=== PATIENT | female | born 1955 | race Caucasian/White ===

== ENCOUNTER 2016-09-11 16:02 | Emergency (ER) | payer OTHER ==
[2016-09-11 17:18] VITALS: BP 123/56
--- NOTE | 2016-09-11 18:25 | UC ---
Respiratory Complaint HPI - History of Current Complaint Chief Complaint: UCRespiratory Stated Complaint: SINUS CONGESTION Time Seen by Provider: 09/11/16 18:14 Hx Obtained From: Patient Onset/Duration: Gradual Onset - pt has had URI for 2 weeks. over past 2-3 days puja has developed worsening sinus pain, pressure and today she has started to have thick yellow nasal drainage Severity Initially: Mild Severity Currently: Moderate Aggravating Factors: Nothing - bending over Alleviating Factors: Nothing - is already taking trini D Associated Signs And Symptoms: Positive: Fever, URI, Nasal Congestion, Sinus Discomfort - Allergies/Home Medications Allergies/Adverse Reactions: Allergies Allergy/AdvReac Type Severity Reaction Status Date / Time No Known Allergies Allergy Verified 10/11/12 09:24 PMH/Surg Hx/FS Hx/Imm Hx Previously Healthy: Yes Endocrine History Of: Denies: Diabetes, Thyroid Disease Cardiovascular History Of: Denies: Cardiac Disorders, Hypertension Respiratory History Of: Denies: COPD, Asthma GI/ History Of: Denies: Ulcer Cancer History Of: Reports: Breast Cancer - Surgical History Surgical History: Yes Surgery Procedure, Year, and Place: lumpectomy left breast 2007. sinus surgery 1989. tubal ligation - Family History Known Family History: Positive: None - Social History Occupation: Unemployed Lives: With Family Alcohol Use: Daily Substance Use Type: None Smoking Status (MU): Never Smoked Tobacco Review of Systems Constitutional: Fever, Fatigue Skin: Negative Eyes: Negative ENT: Nasal Discharge, Other - facial pressure and pain Respiratory: Negative Cardiovascular: Negative Genitourinary: Negative Neurological: Negative Psychological: Negative All Other Systems Reviewed And Are Negative: Yes Physical Exam Triage Information Reviewed: Yes Appearance: Well-Appearing, No Pain Distress, Well-Nourished Vital Signs: Initial Vital Signs Temp 99.4 F 09/11/16 17:15 Pulse 75 09/11/16 17:15 Resp 18 09/11/16 17:15 BP 123/56 09/11/16 17:15 Pulse Ox 100 09/11/16 17:15 Vital Signs Reviewed: Yes Eyes: Positive: Conjunctiva Clear ENT: Positive: Nasal congestion, Other: - OP: injected and irritated with clear PND Neck exam: Normal Neck: Positive: No Lymphadenopathy Respiratory Exam: Normal Respiratory: Positive: Lungs clear Cardiovascular Exam: Normal Cardiovascular: Positive: RRR Neurological Exam: Normal Psychological Exam: Normal Skin Exam: Normal UC Diagnostic Evaluation - Laboratory O2 Sat by Pulse Oximetry: 100 Respiratory Course/Dx - Differential Dx/Diagnosis Differential Diagnosis/HQI/PQRI: Sinusitis, Other - URI allergies Provider Diagnoses: sinusitis Discharge - Discharge Plan Condition: Stable Disposition: HOME Patient Education Materials: Sinusitis (ED) Referrals: Brandon Bailey MD [Primary Care Provider] - 3 Days (if no better) Additional Instructions: drink plenty of fluids use antibiotic as directed Tylenol or ibuprofen over the counter as directed for pain and fever
[2016-09-11] MEDS ORDERED: Amoxicillin/Clavulanate TAB* 875 MG PO ONE (18:27)
== END 2016-09-11 18:35 | disposition home or self-care (01) ==
LOC: UCEAST 16:02
DX: J32.9 Chronic sinusitis, unspecified (principal)
CPT/HCPCS: 99212; A9270-GY; G0463

== ENCOUNTER 2018-12-05 06:28 | Inpatient (IN) | payer BC ==
--- NOTE | 2018-11-28 10:39 | HP ---
HISTORY AND PHYSICAL: DATE OF SURGERY: 12/05/18. DATE OF OFFICE VISIT: 11/27/18 SURGEON: Pura Valderrama MD* (dictated by RENEE Hayes). PROCEDURE: Right total hip arthroplasty. CHIEF COMPLAINT: Right hip pain. HISTORY OF PRESENT ILLNESS: Ms. Walls is a 63-year-old female with complaints of right hip pain. She has failed conservative treatment and elected to proceed with a right total hip arthroplasty. PAST MEDICAL HISTORY: Osteoporosis and history of breast cancer. PAST SURGICAL HISTORY: Lumpectomy, sinus polyp removal, laparoscopy, and tubal ligation. CURRENT MEDICATIONS: 1. Montelukast sodium 10 mg q.h.s. 2. Azelastine nasal spray. 3. Fluticasone nasal spray. 4. Fosamax 70 mg a week. 5. Mucinex as needed. 6. Julianna as needed. 7. MiraLAX daily. 8. Melatonin. 9. Caltrate Women's One-A-Day. 10. Advil. ALLERGIES: No known drug allergies. FAMILY HISTORY: Coronary artery disease, diabetes, cancer, and stroke. SOCIAL HISTORY: She is a 63-year-old female. She lives with her . She does not smoke or use drugs. She uses occasional alcohol. REVIEW OF SYSTEMS: A complete 14-point review of systems was reviewed with the patient, was all negative and noncontributory. She denies a history of DVT, PE , hepatitis C, HIV, or anesthesia problems. PHYSICAL EXAMINATION GENERAL: She is a well-developed, well-nourished, in no acute distress. VITAL SIGNS: She stands 5 feet 8 inches tall, weighs 160 pounds, blood pressure is 110/55, heart rate 64. HEENT: Normocephalic, atraumatic. NECK: Supple. No palpable lymph nodes. PULMONARY: Lungs are clear to auscultation bilaterally. CARDIO: Regular rate and rhythm. Strong S1, S2. ABDOMEN: Soft, nontender, nondistended. NEUROLOGIC: She is alert and oriented x3. MUSCULOSKELETAL: Right lower extremity, the skin is intact. There are no open wounds or abrasions. She has 80 degrees of hip flexion, 0 degrees of internal rotation, 20 degrees of external rotation, and she lacks 10 degrees from neutral. Flexion and external rotation reproduce her groin pain. She has a 2+ dorsalis pedis pulse, intact sensation. Her lower extremity muscle group strengths are intact at 5/5. ASSESSMENT AND PLAN: Ms. Walls is an 63-year-old female with end-stage osteoarthritis of the right hip. She has failed conservative treatment and elected to proceed with a right total hip arthroplasty. The surgery is scheduled for 12/05/[address] Valderrama has discussed the risks and benefits of the surgery at today's visit and all of her questions were answered. She will follow up with Dr. Valderrama 2 weeks after the surgery. RENEE HAYES [id number]/[facility] #: [id number] MTDNacho
[~2018-12-05 06:28] MED LIST: Buffered Lidocaine 1% SYRIN* 1 ML/SYRINGE INTRADERM ONE; Famotidine IV* 10 MG/ML 2 ML (20 mg) IV ONE; Gabapentin CAP(*) 300 MG PO ONE; Lactated Ringers 1000 ML Bag* 1,000 ML IV SCH; Tranexamic Acid 1,000 MG in NS 0.9% 50 ML* (outpatient use) IV SCH
[2018-12-05] MEDS ORDERED: Gabapentin CAP(*) 300 MG ONE (06:57)
[2018-12-05] MEDS ORDERED: ceFAZolin 2 GM PREMIX in ORs 2 GM/50 ML BAG IVPB ONE (06:57)
[2018-12-05] MEDS ORDERED: Famotidine IV* 10 MG/ML 2 ML (20 mg) ONE (06:58)
[2018-12-05] MEDS ORDERED: ROPIVACAINE 5 MG/ML 30 ML BTL (0.5%) ONE (06:59)
--- OUTSIDE RECORDS SUMMARY | 2018-12-05 07:03 | XMS REPORT | Continuity of Care Document ---
:1955 External Reference #:[id number] Author Name Esme Eaton Care Team Providers Name Role Phone Brandon Bailey MD Primary Care Physician Unavailable Payers Date Identification Numbers Payment Provider Subscriber Policy Number: [id number] [employer] Josephine Walls PayID: [id number] [address] [address] [place] [address] Advance Directives Description No Information Available Problems Active Problems Provider Date Localized, primary osteoarthritis of the pelvic Pura Valderrama M.D. Onset: 07/2018 region and thigh Family History Date Family Member(s) Observation Comments General Diabetes General Heart Disease General Hypertension General Stroke General Cancer General Rheumatoid Arthritis General dystonia Social History Type Date Description Comments Sex Unknown Lives With Spouse Occupation Retired ETOH Use Currently consumes alcohol Tobacco Use Start: Unknown End: Patient is a former quit in 1984 Unknown smoker Smoking Status Reviewed: 11/27/18 Patient is a former quit in 1984 smoker Exercise Type/Frequency Exercises regularly Allergies, Adverse Reactions, Alerts Description No Known Drug Allergies Medications Active Medications SIG Qnty Indications Ordering Provider Date Montelukast Sodium Take 1 Tablet By Unknown 10mg Mouth AT Bedtime Tablets Azelastine HCL (Nasal) Whittaker 1 Whittaker Unknown Into Each Nostril 0.1% Solution In The Morning And AT Night, May Use AT The Same Time as Fluticasone. (Wait 10 Minutes In Between) Fluticasone Propionate Whittaker 2 Sprays Unknown Into Each Nostril 50mcg/Act Suspension One Time Daily Fosamax 1 tab by mouth Unknown 70mg Tablets every week. take in in the morning with 6-8 oz of water and remain upright for 30 minutes Mucinex Allergy as needed Unknown Julianna Allergy as needed Unknown Miralax Unknown Melatonin ER Unknown Caltrate 600 Unknown One Daily For Women Unknown Advil Unknown Immunizations Description No Information Available Vital Signs Date Vital Result Comment 11/27/2018 8:31am Height 68 inches 5'8" Weight 106.00 lb Heart Rate 64 /min BP Systolic 110 mmHg BP Diastolic 55 mmHg Body Temperature 96.5 F BMI (Body Mass Index) 16.1 kg/m2 10/16/2018 9:34am Height 68 inches 5'8" Weight 106.00 lb Heart Rate 60 /min BP Systolic 114 mmHg BP Diastolic 68 mmHg Body Temperature 97.7 F Pain Level 7 BMI (Body Mass Index) 16.1 kg/m2 Results Description No Information Available Procedures Description No Information Available Encounters Type Date Location Provider Dx Diagnosis Office Visit 10/16/2018 Orthopedic Pura Valderrama M25.551 [facility]11 Unilateral primary osteoarthritis, right hip Plan of Treatment Future Appointment(s):12/18/2018 9:00 am - Pura Valderrama M.D. at [facility]12/05/2018 11:30 am - Mehul Damon PA-C at [facility]12/05/2018 11:30 am [facility] 11:30 am - Pura Valderrama M.D. at [facility]11/27/2018 - Pura Valderrama M.D.M25.551 Pain in right hipFollow up:Follow up: 2 weeks after [id number] Unilateral primary osteoarthritis, right hip
[2018-12-05 07:42] LABS: ALT 160 U/L (7-52); Albumin 4.4 g/dL (3.2-5.2); Albumin/Globulin Ratio 1.5 (1-3); Alkaline Phosphatase 50 U/L (34-104); Globulin 2.9 g/dL (2-4); Total Protein 7.3 g/dL (6.4-8.9)
[2018-12-05] MEDS ORDERED: Midazolam* 1 MG/ML 5 ML VIAL (5 MG) ONE (08:48)
[2018-12-05] MEDS ORDERED: fentaNYL* 50 MCG/ML 2 ML VIAL (100 MCG VIAL) ONE (08:48)
[2018-12-05] MEDS ORDERED: KETAMINE HCL* 50 MG/ML 10 ML VIAL ONE (08:49)
[2018-12-05 09:23] LABS: Magnesium 1.9 mg/dL (1.9-2.7)
[2018-12-05] MEDS ORDERED: Ketorolac INJ* 30 MG/ML 1 ML VIAL ONE (09:46)
[2018-12-05] MEDS ORDERED: Propofol* 10 MG/ML 20 ML BTL ONE (09:46)
[2018-12-05] MEDS ORDERED: EPHEDrine (Pressors)* 50 MG/ML VIAL ONE (09:46)
[2018-12-05] MEDS ORDERED: Ondansetron INJ* 2 MG/ML VIAL ONE (09:46)
[2018-12-05] MEDS ORDERED: Dexamethasone IV* 4 MG/ML 1 ML (4 MG) ONE (09:46)
[2018-12-05] MEDS ORDERED: Lidocaine 2% PF * 5 ML VIAL ONE (09:47)
[2018-12-05] MEDS ORDERED: Phenylephrine 10 MG/ML VIAL* 1 ML VIAL ONE (09:47)
[2018-12-05] MEDS ORDERED: Naloxone* 0.4 MG/ML 1 ML VIAL IV PRN (10:34)
[2018-12-05] MEDS ORDERED: HYDROmorphone INJ1* 1 MG/ML SYRINGE IV PRN (10:34)
[2018-12-05] MEDS ORDERED: DiMENhydriNATE IV* 50 MG/ML VIAL IV PUSH PRN (10:34)
[2018-12-05] MEDS ORDERED: oxyCODONE TAB* 5 MG TAB PO PRN (10:34)
[2018-12-05] MEDS ORDERED: Gabapentin CAP(*) 100 MG PO ONE (10:40)
[2018-12-05] MEDS ORDERED: Cyclobenzaprine TAB* 10 MG PO PRN (11:56)
[2018-12-05] MEDS ORDERED: diPHENhydraMINE IV* 50 MG/ML 1 ml VIAL (BENADRYL) IV PRN (11:56)
[2018-12-05] MEDS ORDERED: Ondansetron INJ* 2 MG/ML VIAL IV PRN (11:56)
[2018-12-05] MEDS ORDERED: Morphine INJ* 2 MG/ML 1 ML SYRINGE (TWO MG - NEW SYRINGE VERSION) IV PRN (11:56)
[2018-12-05] MEDS ORDERED: Magnesium Hydroxide LIQ* 30 ML UDC PO PRN (11:56)
[2018-12-05] MEDS ORDERED: Bisacodyl SUPP* 10 MG SUPP PR PRN (11:56)
[2018-12-05] MEDS ORDERED: Gabapentin CAP(*) 100 MG ONE (12:31)
[2018-12-05] MEDS: oxyCODONE TAB* 5 MG TAB PO PRN ×2 (13:57→17:36)
[2018-12-05] MEDS: Lactated Ringers 1000 ML Bag* 1,000 ML IV SCH (13:59)
--- NOTE | 2018-12-05 14:34 | PN ---
Progress Note - Progress Note Date of Service: 12/05/18 Note: Pt seen at bedside. She feels well, she is eating and drinking. Pain is well controlled. Denies CP, SOB, dizziness, nausea. Operative extremity + df/pf, sensation is intact to light touch distally. Dressing CDI
[2018-12-05] MEDS ORDERED: NS 0.9% 500 ML* 500 ML IV ONE (15:59)
[2018-12-05] MEDS ORDERED: NS 0.9% 1000 ML** 1,000 ML IV ONE (16:01)
[2018-12-05] MEDS: ceFAZolin 1 GM ADVAN(*) 1 GM in NS 0.9% 50 ML* 50 ML IVPB SCH (17:15)
--- NOTE | 2018-12-05 17:25 | OP ---
Operative Report - Blank - Operative Report Date of Operation: 12/05/18 Note: CLIFFORD RODRIGUEZ 1955 Date Of Surgery: 12/05/18 Pura Valderrama MD Mutual Fund Accountant: Mehul DURAN did help throughout the procedure with preparation of the hip, wound retraction, manipulation of the hip, and wound closure. Anesthesiologist: Mary PELLETIER Anesthesia Type: spinal Preoperative Diagnosis: Right severe degenerative osteoarthritis of the hip Postoperative Diagnosis: As above Procedure Performed: Right Total Hip Arthroplasty Complications: None Specimen: Femoral head and acetabular reamings sent to pathology. Hardware used: This is uncemented Giovanna total hip arthroplasty hardware for the femur a size 5 accolade II with 127 neck femoral component, for the acetabulum a size 54E trident II tritanium cluster hole shell, for the insert a size 36 E polyethylene trident x3 insert, and for the femoral head a size 36 + 0 ceramic biolox delta V40 femoral head. Brief history/Indication: CLIFFORD RODRIGUEZ was known in clinic and had a history of severe right hip pain. She failed conservative treatment with anti- inflammatories, pain pills, intra-articular injections and physical therapy. She elected to undergo right total hip arthroplasty due to continued pain and decreased quality of life. Radiographs showed severe end stage osteoarthritis of the hip with bone on bone contact. Informed consent was obtained from the patient. She understood the risks of surgery included but were not limited to: bleeding, infection, damage to nearby structures, intraoperative fracture, nerve palsy, failure of the hardware, early loosening, stiffness or loss of motion, dislocation, leg length discrepancy, anesthesia complications, stroke, heart attack, blood clot and . She wished to proceed. Intra-Operative findings: Intraoperatively the patient was noted to have severe loss of cartilage of the acetabulum and femoral head. The acetabulum was sclerotic and the medial wall was extremely thin. Description of the Procedure: CLIFFORD RODRIGUEZ was identified in the preanesthesia unit. Her right hip was marked as the correct operative side. Informed consent was signed and placed in the chart. The patient was taken to the operating room and placed under anesthesia without complication. A aguilar catheter was placed. The patient was placed on the peg board with all bony prominences well padded. The right lower extremity was prepped and draped in the usual sterile fashion. Preoperative time -out was made to correctly identify the patient, side and site. Appropriate intraoperative antibiotics were given within one hour of incision. A standard posterior incision was made and carried sharply down to the lateral fascia. A new 10 blade was used to make an incision in the fascia in line with the skin incision. A charnley retractor was placed. The piriformis and conjoined tendons were identified and elevated off the posterolateral femur using electrocautery. These were tagged with number 5 Ethibond. Next electrocautery was used to make a posterolateral capsular flap and this was tagged with number 5 Ethibonds. The hip was carefully dislocated. Lesser trochanter to the center of the femoral head was measured at 60 mm. The oscillating saw was used to make the femoral neck cut. The femoral head was carefully removed. The femur was retracted anteriorly and the acetabular retractors were placed. Long-handled knife was used to sharply remove any remaining labrum from the acetabular rim. The acetabulum was sequentially reamed up to a size 53. A bleeding subchondral bone bed was obtained. A trial cup was placed and had excellent fit and stability. A trident II tritanium cup 54E was placed and had excellent stability with appropriate anteversion and abduction angle. A size 36 E liner was impacted into the acetabular shell. The liner was checked for stability and was stable. Next attention was turned to preparation of the femoral canal. A canal finder was used to enter the proximal femur. The femoral canal was sequentially broached up to a size 5 femoral broach trial. A trial neck and 36 + 0 trial femoral head was chosen. Lesser trochanter to center of the femoral head measurement was satisfactory. The hip was reduced and taken through a range of motion. The hip was stable in all positions with good soft tissue tension and appropriate leg lengths. The hip was dislocated and all trials were removed. The final implant chosen was a size 5 accolade II with 127 neck. This stem was impacted into the femoral canal without difficulty. The stem was stable with appropriate anteversion. The femoral head chosen was a 36 + 0 ceramic biolox delta. The head was impacted onto the femoral neck without difficulty. The final lesser trochanter to center of the femoral head measurement was satisfactory. The hip was reduced and taken through a range of motion. The hip was stable in all positions with good soft tissue tension and appropriate leg lengths. The hip was copiously irrigated with sterile saline. The previously tagged capsule and tendons were repaired to the posterolateral femur through two trochanteric drill holes. The lateral fascia layer was closed using number 1 vicryls. The rest of the incision was closed in a layered fashion using 0 and 2-0 vicryls. The skin was closed using 3-0 monocryl suture and Dermabond. Sterile adaptic, 4x4s and paper tape was used to cover the incision. The patients anesthesia was reversed without difficulty. She was taken to the PACU in stable condition. Intended weight-bearing will be as tolerated with posterior hip precautions.
[2018-12-05] MEDS: Magnesium Hydroxide LIQ* 30 ML UDC PO SCH (21:31)
[2018-12-05] MEDS: Docusate CAP* 100 MG PO SCH (21:31)
[2018-12-06] MEDS: Lactated Ringers 1000 ML Bag* 1,000 ML IV SCH ×2 (00:33→16:34)
[2018-12-06] MEDS: ceFAZolin 1 GM ADVAN(*) 1 GM in NS 0.9% 50 ML* 50 ML IVPB SCH ×2 (00:34→08:47)
[2018-12-06] MEDS: oxyCODONE TAB* 5 MG TAB PO PRN ×4 (00:35→17:55)
[2018-12-06 05:12] LABS: Hematocrit 21 % (35-47); Hemoglobin 7.5 g/dL (12.0-16.0); Mean Platelet Volume 7.3 fL (7.4-10.4); Platelet Count 157 10^3/uL (150-450)
[2018-12-06 05:29] LABS: BUN/Creatinine Ratio 27.5 (8-20); Calcium 8.1 mg/dL (8.6-10.3); EGFR African American 146.9 (>60); EGFR Non-African American 121.4 (>60); Potassium 4.2 mmol/L (3.5-5.0)
--- NOTE | 2018-12-06 08:21 | PN ---
Progress Note - Progress Note Date of Service: 12/06/18 SOAP: Subjective: []Patient seen and examined at bedside. She is feeling well aside from fatigue. Denies any chest pain, shortness of breath, dizziness, nausea. Objective: []General: Appears well, NAD RLE: Right hip dressing CDI. thigh is soft. DF/PF intact, DP2+, sensation intact to light touch distally Calves supple and nontender without erythema, edema or palpable cords Assessment: []POD 1 sp RTH Plan: []WBAT PT/OT US GB per Dr Bailey, patient is NPO for this test 2 UNIT PRBC ordered by Dr Valderrama this morning for acute bloodloss anemia Hyponatremia: resume normal diet after US and recheck sodium this afternoon. Discussed with medicine, will consult if worsening but no action recommended at this time Vital Signs Temp 98.8 F 12/06/18 10:03 Pulse 74 12/06/18 10:03 Resp 16 12/06/18 10:03 BP 100/38 12/06/18 10:03 Pulse Ox 100 12/06/18 10:03 Intake & Output 12/05/18 12/06/18 12/06/18 18:59 06:59 18:59 Intake Total 3545 2270 938 Output Total 400 630 Balance 3145 1640 938 Weight 106 lb Intake: IV Fluids 2705 670 938 ABX - CEFAZOLIN 55 110 LR 1300 Lactated Ringers 310 670 828 NS (0.9%) 990 NS 50ML, Cefazolin 2G 50 Oral 840 1600 Output: Rice 400 630 Laboratory Last Values Hgb 7.5 g/dL (12.0-16.0) L 12/06/18 04:50 Hct 21 % (35-47) L 12/06/18 04:50 Plt Count 157 10^3/uL (150-450) 12/06/18 04:50 MPV 7.3 fL (7.4-10.4) L 12/06/18 04:50 Sodium 128 mmol/L (135-145) L 12/06/18 04:50 Potassium 4.2 mmol/L (3.5-5.0) 12/06/18 04:50 Chloride 99 mmol/L (101-111) L 12/06/18 04:50 Carbon Dioxide 27 mmol/L (22-32) 12/06/18 04:50 Anion Gap 2 mmol/L (2-11) 12/06/18 04:50 BUN 14 mg/dL (6-24) 12/06/18 04:50 Creatinine 0.51 mg/dL (0.51-0.95) 12/06/18 04:50 Est GFR ( Amer) 146.9 (>60) 12/06/18 04:50 Est GFR (Non-Af Amer) 121.4 (>60) 12/06/18 04:50 BUN/Creatinine Ratio 27.5 (8-20) H 12/06/18 04:50 Glucose 139 mg/dL (70-100) H 12/06/18 04:50 Calcium 8.1 mg/dL (8.6-10.3) L 12/06/18 04:50 Magnesium 1.9 mg/dL (1.9-2.7) 12/05/18 08:12 Total Bilirubin 0.50 mg/dL (0.2-1.0) 12/05/18 07:10 Direct Bilirubin 0.10 mg/dL (0.03-0.18) 12/05/18 08:12 Indirect Bilirubin TNP 12/05/18 07:10 AST 88 U/L (13-39) H 12/05/18 08:12 ALT 160 U/L (7-52) H 12/05/18 07:10 Alkaline Phosphatase 50 U/L (34-104) 12/05/18 07:10 Total Protein 7.3 g/dL (6.4-8.9) 12/05/18 07:10 Albumin 4.4 g/dL (3.2-5.2) 12/05/18 07:10 Globulin 2.9 g/dL (2-4) 12/05/18 07:10 Albumin/Globulin Ratio 1.5 (1-3) 12/05/18 07:10 Blood Type O Positive 12/06/18 04:50 Antibody Screen Negative 12/06/18 04:50 Crossmatch See Detail 12/06/18 04:50
[2018-12-06] MEDS: Magnesium Hydroxide LIQ* 30 ML UDC PO SCH ×2 (09:19→20:26)
[2018-12-06] MEDS: Apixaban* 2.5 MG TAB PO SCH ×2 (09:20→20:26)
[2018-12-06] MEDS: AZELASTINE HCL 137 MCG BOTH NARES SCH (09:20)
[2018-12-06] MEDS: Docusate CAP* 100 MG PO SCH ×2 (09:20→20:26)
[2018-12-06] MEDS ORDERED: oxyCODONE TAB* 5 MG TAB PO PRN (10:02)
[2018-12-06 17:20] LABS: Hematocrit 30 % (35-47); Hemoglobin 10.5 g/dL (12.0-16.0)
[2018-12-07] MEDS: oxyCODONE TAB* 5 MG TAB PO PRN ×3 (02:33→12:24)
[2018-12-07 05:48] LABS: Hematocrit 26 % (35-47); Hemoglobin 9.2 g/dL (12.0-16.0); Mean Platelet Volume 7.5 fL (7.4-10.4); Platelet Count 137 10^3/uL (150-450)
[2018-12-07] MEDS ORDERED: ALENDRONATE 70 MG PO SCH (07:30)
[2018-12-07] MEDS: Docusate CAP* 100 MG PO SCH (08:50)
[2018-12-07] MEDS: Magnesium Hydroxide LIQ* 30 ML UDC PO SCH (08:50)
[2018-12-07] MEDS: AZELASTINE HCL 137 MCG BOTH NARES SCH (08:50)
[2018-12-07] MEDS: Apixaban* 2.5 MG TAB PO SCH (08:50)
--- NOTE | 2018-12-07 09:51 | DS ---
Orthopedic Discharge Summary - Discharge Summary Date of Admission:12/05/18 Date of Discharge: 12/07/18 Date of Surgery: 12/05/18 Attending Orthopedic Provider: Dr Valderrama Pre-operative Diagnosis: right hip arthritis Operative Procedure: right total hip arthroplasty Disposition of Patient: home Condition of Patient: stable History: CLFIFORD RODRIGUEZ is a 63 year old F with years of increasingly severe left hip pain. Patient has failed conservative management and has elected to undergo a left total hip replacement Hospital Course: CLIFFORD was admitted to [facility] on 12/05/18. Patient underwent a left total hip replacement without complication followed by a brief recovery in PACU and transfer to the Short Stay Surgical Unit in stable condition. Our hospitalist service, physical therapy and occupational therapy also participated in this patients care. Post-op day 1: patient was alert and in no acute distress. Dressing was clean, dry and intact. Operative extremity dorsiflexion and plantarflexion intact, sensation intact to light touch distally , DP2+. She had acute bloodloss anemia which improved with pRBC as well as hyponatremia that improved without intervention and needs to be monitored within 3 days. She had a gallbladder ultrasound ordered by her PCP, she will follow up with her PCP on this. Post-op day two: dressing was changed, incision was clean, dry and intact. Patient was deemed to be medically and orthopedically stable for discharge. Physical therapy goals were met. Home Medications Medication Instructions Recorded Confirmed Type Advil 200 mg PO QAM 05/30/12 11/27/18 History Caltrate 600 600 mg PO QPM 05/30/12 11/27/18 History Flonase 1 spray BOTH NARES QPM 05/30/12 11/27/18 History Miralax 17 gm PO DAILY PRN 05/30/12 11/27/18 History Mucinex 1 tab PO DAILY PRN 05/30/12 11/27/18 History Womens Multi 1 tab PO QPM 05/30/12 11/27/18 History Alendronate Sodium [Fosamax-] 1 tab PO WEEKLY 11/27/18 11/27/18 History Azelastine HCl 137 mcg BOTH NARES QAM 11/27/18 11/27/18 History Melatonin 5 mg PO QPM 11/27/18 11/27/18 History Montelukast Sodium 10 mg PO QPM 11/27/18 11/27/18 History Acetaminophen 325 mg 12/05/18 History Apixaban* [Eliquis*] 2.5 mg PO BID #60 tab 12/07/18 Rx Docusate CAP* [Colace Cap*] 100 mg PO BID PRN #90 cap 12/07/18 Rx oxyCODONE TAB* [Roxycodone TAB 5 2.5 mg PO Q4H PRN tab MDD 10 12/07/18 Rx mg*] oxyCODONE TAB* [Roxycodone TAB 5 5 mg PO Q4H PRN #50 tab MDD 8 12/07/18 Rx mg*] Discharge Instructions following Orthopedic Surgery: Activity: * Weight Bearing as tolerated * Continue physical therapy and occupational therapy exercises as shown * Start outpatient physical therapy Hip replacements: Continue Hip Precautions- do not cross legs or bend greater than 90 degrees/squat Wound care: * OK to shower on post-op day 3, no bathing, swimming, or submerging wound. * Use gentle soap, pat dry. Cover with gauze, MAX wrap or tape. Call Orthopedic office for: * Increased drainage * Redness * Increased pain * Fever Go to ER with shortness of breath or chest pain. Diet: * Regular diet * Increase fluids and fiber to prevent constipation. * Continue to use stool softeners, call office if no bowel motion within 48 hours. Recheck sodium within 3 days at outpatient lab Medications See Home Medication List in your packet for medications that you should take after discharge. DVT Prophylaxis: Eliquis Dosin.5 mg, 1 tab every 12 hours x 30 days. Note that this medication increases bleeding tendency Pain Control: Percocet Dosin/325 mg one half to one tab by mouth every 4-6 hours as needed for pain. Maximum of 8 tabs per day. hold for sedation Please note that Percocet contains Tylenol (acetaminophen). Maximum daily dose of Tylenol is 4000 mg from all sources. Follow up with your PCP within 1 week regarding gallbladder US Antibiotics are required prior to any dental work. FOLLOW UP: Follow up with [[facility]] Within 10-14 days, call for appointment Please call our office with any questions or concerns ([phone])
[2018-12-07 11:20] VITALS: BP 118/52
== END 2018-12-07 13:08 | disposition home or self-care (01) | DRG 301 ==
LOC: AA 06:28 → SSU 11:56
PROVIDERS: ADMIT Orthopaedic Surgery Adult Reconstructive Orthopaedic Surgery; ATTEND Orthopaedic Surgery Adult Reconstructive Orthopaedic Surgery
PROC: 0SR904Z Replacement of Right Hip Joint with Ceramic on Polyethylene Synthetic Substitute, Open Approach (ICD-10-PCS; principal; 2018-12-05 09:00)
PROC: 30233N1 Transfusion of Nonautologous Red Blood Cells into Peripheral Vein, Percutaneous Approach (ICD-10-PCS; 2018-12-06)
DX: M16.11 Unilateral primary osteoarthritis, right hip (principal); D62 Acute posthemorrhagic anemia; E87.1 Hypo-osmolality and hyponatremia; Z68.1 Body mass index [BMI] 19.9 or less, adult; M81.0 Age-related osteoporosis without current pathological fracture; K76.0 Fatty (change of) liver, not elsewhere classified; R63.6 Underweight; J30.1 Allergic rhinitis due to pollen; R49.0 Dysphonia; Z80.0 Family history of malignant neoplasm of digestive organs; Z79.01 Long term (current) use of anticoagulants; Z85.3 Personal history of malignant neoplasm of breast; Z98.51 Tubal ligation status; Z83.3 Family history of diabetes mellitus; Z82.49 Family history of ischemic heart disease and other diseases of the circulatory system; Z82.3 Family history of stroke; Z91.048 Other nonmedicinal substance allergy status; Z92.3 Personal history of irradiation; Z72.89 Other problems related to lifestyle; Z91.09 Other allergy status, other than to drugs and biological substances; Z87.891 Personal history of nicotine dependence
CPT/HCPCS: 36415; 76705; 80048; 80076; 83735; 84300; 85014; 85018; 85049; 86850; 86900; 86901; 86922; A9270-GY; C1713; C1776; J0690; J1100; J1885; J2250; J2270; J2405; J2704; J2795; J3010; P9040

== ENCOUNTER 2020-09-09 11:40 | Inpatient (IN) ==
[2020-09-09] MEDS ORDERED: NS 0.9% 1000 ml BAG 1,000 ML IV ONE (11:56)
[2020-09-09] MEDS ORDERED: Ondansetron 4 mg VIAL 2 MG/ML 2 ml VIAL IV ONE (12:23)
[2020-09-09 12:41] LABS: Hematocrit 35 % (35-47); Hemoglobin 12.3 g/dL (12.0-16.0); Mean Corpuscular HGB Conc 35 g/dL (31-36); Mean Corpuscular Hemoglobin 36 pg (27-31); Mean Corpuscular Volume 104 fL (80-97); Mean Platelet Volume 7.6 fL (7.4-10.4); Platelet Count 236 10^3/uL (150-450); Red Blood Count 3.41 10^6 /uL (3.70-4.87); Red Cell Distribution Width 16 % (10-15); White Blood Count 6.6 10^3/uL (3.5-10.8)
[2020-09-09 13:00] LABS: ALT 197 U/L (7-52); Albumin 2.6 g/dL (3.2-5.2); Albumin/Globulin Ratio 0.5 (1-3); Alkaline Phosphatase 160 U/L (34-104); BUN/Creatinine Ratio 53.4 (8-20); Blood Urea Nitrogen 31 mg/dL (6-24); C Reactive Protein 145.75 mg/L (<8.01); CO2 Carbon Dioxide 22 mmol/L (22-32); Calcium 9.4 mg/dL (8.6-10.3); Chloride 101 mmol/L (101-111); EGFR African American 125.9 (>60); Globulin 5.2 g/dL (2-4); Glucose 79 mg/dL (70-100); Lipase 11 U/L (11.0-82.0); Sodium 130 mmol/L (135-145); Total Protein 7.8 g/dL (6.4-8.9)
[2020-09-09 13:01] LABS: Anion Gap 7 mmol/L (2-11)
[2020-09-09] MEDS ORDERED: Piperacillin/Tazobac ADVAN 3.375 GM in NS 0.9% 100 ml BAG 100 ML IV ONE (13:10)
[2020-09-09 13:39] LABS: ABS Lymphocytes 0.8 10^3/ul (1.0-4.8); ABS Monocytes 0.4 10^3/ul (0-0.8); ABS Neutrophils 5.5 10^3/ul (1.5-7.7); Lymphocyte % 11.9 %; Nucleated Red Blood Cells % 0.1
[2020-09-09] MEDS ORDERED: Iohexol 300 (CONTRAST) 10 ML SDV IV ONE (14:21)
[2020-09-09] MEDS ORDERED: Morphine 4 MG/ML VIAL (1 ml) IV ONE (16:08)
[2020-09-09] MEDS ORDERED: Lidocaine 1% MPF 5 ML VIAL INJ ONE (16:42)
[2020-09-09] MEDS ORDERED: Lidocaine 1% VIAL 10 MG/ML VIAL ONE (16:42)
[2020-09-09 17:06] LABS: INR 1.88 (0.82-1.09)
[2020-09-09 18:41] LABS: Magnesium 1.8 mg/dL (1.9-2.7); Potassium Redraw 3.9 mmol/L (3.5-5.0)
[2020-09-09 18:51] LABS: Total Bilirubin 2.5 mg/dL (0.2-1.0)
[2020-09-09] MEDS: cefTRIAXone 1 gm/50 mL NS BAG 1 GM/50 ML BAG IVPB SCH (21:48)
[2020-09-09] MEDS: Polyethylene Glycol 3350 17 GM PACKET PO PRN (21:49)
[2020-09-10 06:22] LABS: ABS Lymphocytes 1.1 10^3/ul (1.0-4.8); ABS Monocytes 0.5 10^3/ul (0-0.8); ABS Neutrophils 5.5 10^3/ul (1.5-7.7); Eosinophil % 0.3 %; Hematocrit 29 % (35-47); Hemoglobin 10.2 g/dL (12.0-16.0); Lymphocyte % 15.6 %; Mean Corpuscular HGB Conc 35 g/dL (31-36); Mean Corpuscular Hemoglobin 36 pg (27-31); Mean Corpuscular Volume 104 fL (80-97); Nucleated Red Blood Cells % 0.1; Platelet Count 196 10^3/uL (150-450); Red Blood Count 2.82 10^6 /uL (3.70-4.87); Red Cell Distribution Width 16 % (10-15); White Blood Count 7.2 10^3/uL (3.5-10.8)
[2020-09-10 06:41] LABS: Albumin 2.2 g/dL (3.2-5.2); Albumin/Globulin Ratio 0.5 (1-3); BUN/Creatinine Ratio 61.1 (8-20); Calcium 8.7 mg/dL (8.6-10.3); EGFR African American 136.7 (>60); Globulin 4.1 g/dL (2-4); Potassium 3.8 mmol/L (3.5-5.0); Total Protein 6.3 g/dL (6.4-8.9)
[2020-09-10 06:58] LABS: Urine Appearance Clear; Urine Bilirubin Negative (Negative); Urine Blood Negative (Negative); Urine Color Amber; Urine Glucose Negative (Negative); Urine Ketones Negative (Negative); Urine Nitrite Negative (Negative); Urine Protein Negative (Negative); Urine Specific Gravity 1.031 (1.010-1.030); Urine Urobilinogen Positive (Negative)
[2020-09-10 07:05] LABS: Urine Bacteria Absent (Absent); Urine Red Blood Cell 1+(3-5/hpf) (Absent); Urine White Blood Cell 3+(>20/hpf) (Absent)
[2020-09-10] MEDS ORDERED: Magnesium Sulfate 2 gm BAG 2 GM/50 ML BAG IVPB ONE (07:33)
[2020-09-10] MEDS: Morphine 2 MG/ML SYRINGE IV PRN ×2 (07:49→15:31)
[2020-09-10] MEDS: Fluticasone NASAL SPRAY 50MCG 16 gm SPRAY BTL BOTH NARES SCH (07:56)
[2020-09-10 10:51] LABS: C Reactive Protein 141.87 mg/L (<8.01)
[2020-09-10 17:55] LABS: Body Fluid Source Peritonial Fluid
[2020-09-10 18:54] LABS: Body Fluid Mono 2 %
[2020-09-10] MEDS: cefTRIAXone 1 gm/50 mL NS BAG 1 GM/50 ML BAG IVPB SCH (20:24)
[2020-09-10] MEDS: Polyethylene Glycol 3350 17 GM PACKET PO PRN (20:24)
[2020-09-10] MEDS ORDERED: cefTRIAXone 1 gm/50 mL NS BAG 1 GM/50 ML BAG IVPB ONE (22:54)
[2020-09-11 06:12] LABS: ABS Lymphocytes 1.3 10^3/ul (1.0-4.8); ABS Monocytes 0.8 10^3/ul (0-0.8); ABS Neutrophils 8.3 10^3/ul (1.5-7.7); Eosinophil % 0.4 %; Hematocrit 29 % (35-47); Hemoglobin 10.1 g/dL (12.0-16.0); Lymphocyte % 12.8 %; Mean Corpuscular HGB Conc 35 g/dL (31-36); Mean Corpuscular Hemoglobin 36 pg (27-31); Mean Corpuscular Volume 104 fL (80-97); Mean Platelet Volume 7.2 fL (7.4-10.4); Platelet Count 204 10^3/uL (150-450); Red Blood Count 2.82 10^6 /uL (3.70-4.87); Red Cell Distribution Width 16 % (10-15); White Blood Count 10.5 10^3/uL (3.5-10.8)
[2020-09-11 06:25] LABS: Albumin 2.1 g/dL (3.2-5.2); Albumin/Globulin Ratio 0.5 (1-3); BUN/Creatinine Ratio 60.4 (8-20); Calcium 8.8 mg/dL (8.6-10.3); EGFR African American 156.6 (>60); EGFR Non-African American 129.4 (>60); Globulin 4.2 g/dL (2-4); Potassium 3.7 mmol/L (3.5-5.0); Total Bilirubin 1.6 mg/dL (0.2-1.0); Total Protein 6.3 g/dL (6.4-8.9)
[2020-09-11] MEDS ORDERED: Piperacillin/Tazobac ADVAN 3.375 GM in NS 0.9% 100 ml BAG 100 ML IV ONE (08:30)
[2020-09-11] MEDS ORDERED: Zosyn per Pharmacy NOTE FOLLOW UP SCH (09:00)
[2020-09-11] MEDS: Fluticasone NASAL SPRAY 50MCG 16 gm SPRAY BTL BOTH NARES SCH (09:24)
[2020-09-11] MEDS: Morphine 2 MG/ML SYRINGE IV PRN (09:28)
[2020-09-11] MEDS: ZOSYN 3.375 GM Q8H per EXTENDED INFUSION IV SCH ×2 (14:05→22:00)
[2020-09-11] MEDS: Albumin Human 25% 25 GM/100 ML BTL IV SCH ×2 (17:12→18:18)
[2020-09-11] MEDS: Polyethylene Glycol 3350 17 GM PACKET PO PRN (19:47)
[2020-09-11] MEDS ORDERED: cefTRIAXone 2 GM ADDV.VIAL 2 GM in NS 0.9% 100 ml BAG 100 ML IV SCH (21:00)
[2020-09-12] MEDS: ZOSYN 3.375 GM Q8H per EXTENDED INFUSION IV SCH ×3 (05:29→21:00)
[2020-09-12 06:25] LABS: ABS Eosinophils 0.1 10^3/ul (0-0.6); ABS Lymphocytes 1.3 10^3/ul (1.0-4.8); ABS Monocytes 0.6 10^3/ul (0-0.8); ABS Neutrophils 5.9 10^3/ul (1.5-7.7); Eosinophil % 1.2 %; Hematocrit 29 % (35-47); Mean Corpuscular HGB Conc 35 g/dL (31-36); Mean Corpuscular Hemoglobin 36 pg (27-31); Mean Corpuscular Volume 104 fL (80-97); Mean Platelet Volume 7.3 fL (7.4-10.4); Platelet Count 183 10^3/uL (150-450); Red Blood Count 2.78 10^6 /uL (3.70-4.87); Red Cell Distribution Width 16 % (10-15); White Blood Count 7.9 10^3/uL (3.5-10.8)
[2020-09-12 06:31] LABS: INR 1.98 (0.82-1.09)
[2020-09-12 06:49] LABS: Albumin 2.6 g/dL (3.2-5.2); Albumin/Globulin Ratio 0.7 (1-3); BUN/Creatinine Ratio 58.7 (8-20); Calcium 9.2 mg/dL (8.6-10.3); EGFR African American 164.5 (>60); EGFR Non-African American 135.9 (>60); Globulin 3.7 g/dL (2-4); Potassium 3.8 mmol/L (3.5-5.0); Total Bilirubin 2.5 mg/dL (0.2-1.0); Total Protein 6.3 g/dL (6.4-8.9)
[2020-09-12] MEDS: Fluticasone NASAL SPRAY 50MCG 16 gm SPRAY BTL BOTH NARES SCH (09:45)
[2020-09-12] MEDS: Morphine 2 MG/ML SYRINGE IV PRN ×2 (11:20→21:54)
[2020-09-12] MEDS: Polyethylene Glycol 3350 17 GM PACKET PO PRN (17:49)
[2020-09-13] MEDS: ZOSYN 3.375 GM Q8H per EXTENDED INFUSION IV SCH ×3 (05:27→21:46)
[2020-09-13 06:25] LABS: ABS Eosinophils 0.1 10^3/ul (0-0.6); ABS Lymphocytes 1.2 10^3/ul (1.0-4.8); ABS Monocytes 0.8 10^3/ul (0-0.8); ABS Neutrophils 9.8 10^3/ul (1.5-7.7); Eosinophil % 0.8 %; Hematocrit 28 % (35-47); Hemoglobin 9.6 g/dL (12.0-16.0); Lymphocyte % 9.9 %; Mean Corpuscular HGB Conc 35 g/dL (31-36); Mean Corpuscular Hemoglobin 36 pg (27-31); Mean Corpuscular Volume 103 fL (80-97); Mean Platelet Volume 7.1 fL (7.4-10.4); Platelet Count 163 10^3/uL (150-450); Red Blood Count 2.68 10^6 /uL (3.70-4.87); Red Cell Distribution Width 16 % (10-15); White Blood Count 11.9 10^3/uL (3.5-10.8)
[2020-09-13 06:41] LABS: Albumin 2.2 g/dL (3.2-5.2); Albumin/Globulin Ratio 0.6 (1-3); BUN/Creatinine Ratio 66.7 (8-20); Calcium 8.9 mg/dL (8.6-10.3); EGFR African American 168.7 (>60); EGFR Non-African American 139.4 (>60); Globulin 3.5 g/dL (2-4); Total Bilirubin 2.3 mg/dL (0.2-1.0); Total Protein 5.7 g/dL (6.4-8.9)
[2020-09-13] MEDS: Fluticasone NASAL SPRAY 50MCG 16 gm SPRAY BTL BOTH NARES SCH (09:18)
[2020-09-13 11:27] LABS: Albumin, BF 0.8 g/dL; Fluid Type, Albumin PERITONEAL
[2020-09-13 11:29] LABS: Fluid Type, Protein, Total PERITONEAL
[2020-09-13 11:30] LABS: Lactate Dehydrogenase, BF 801 U/L
[2020-09-13 12:59] LABS: C Reactive Protein 89.4 mg/L (<8.01)
[2020-09-13] MEDS: Polyethylene Glycol 3350 17 GM PACKET PO PRN (19:55)
[2020-09-13] MEDS: Lactulose 30 ml UDC PO SCH (19:55)
[2020-09-13] MEDS: Morphine 2 MG/ML SYRINGE IV PRN (21:37)
[2020-09-13] MEDS ORDERED: NS 0.9% 1000 ml BAG 1,000 ML IV SCH (21:45)
[2020-09-13] MEDS ORDERED: cefTRIAXone 2 GM ADDV.VIAL 2 GM in NS 0.9% 100 ml BAG 100 ML IV SCH (22:00)
[2020-09-14 04:07] LABS: ABS Basophils 0.2 10^3/ul (0-0.2); ABS Eosinophils 0.1 10^3/ul (0-0.6); ABS Lymphocytes 1.4 10^3/ul (1.0-4.8); ABS Monocytes 0.9 10^3/ul (0-0.8); ABS Neutrophils 10.1 10^3/ul (1.5-7.7); Eosinophil % 0.5 %; Hematocrit 28 % (35-47); Hemoglobin 9.4 g/dL (12.0-16.0); Lymphocyte % 10.8 %; Mean Corpuscular HGB Conc 34 g/dL (31-36); Mean Corpuscular Hemoglobin 36 pg (27-31); Mean Corpuscular Volume 104 fL (80-97); Mean Platelet Volume 7.6 fL (7.4-10.4); Platelet Count 168 10^3/uL (150-450); Red Blood Count 2.65 10^6 /uL (3.70-4.87); Red Cell Distribution Width 15 % (10-15); White Blood Count 12.6 10^3/uL (3.5-10.8)
[2020-09-14 04:19] LABS: Albumin 2.2 g/dL (3.2-5.2); Albumin/Globulin Ratio 0.6 (1-3); BUN/Creatinine Ratio 58.8 (8-20); Calcium 8.9 mg/dL (8.6-10.3); EGFR Non-African American 120.7 (>60); Globulin 3.9 g/dL (2-4); Potassium 3.8 mmol/L (3.5-5.0); Total Bilirubin 2.4 mg/dL (0.2-1.0); Total Protein 6.1 g/dL (6.4-8.9)
[2020-09-14] MEDS: ZOSYN 3.375 GM Q8H per EXTENDED INFUSION IV SCH ×3 (05:35→20:55)
[2020-09-14] MEDS: Polyethylene Glycol 3350 17 GM PACKET PO PRN (08:55)
[2020-09-14] MEDS: Fluticasone NASAL SPRAY 50MCG 16 gm SPRAY BTL BOTH NARES SCH (08:57)
[2020-09-14] MEDS: Lactulose 30 ml UDC PO SCH ×2 (08:58→20:55)
[2020-09-14] MEDS ORDERED: Iohexol 300 (CONTRAST) 10 ML SDV IV ONE (12:24)
[2020-09-14] MEDS ORDERED: Iohexol 300 (CONTRAST) 10 ML SDV IV SCH (13:00)
[2020-09-14 13:07] LABS: Fluid Type, Glucose ASCITES; Glucose, BF 112 mg/dL
[2020-09-15] MEDS: Morphine 2 MG/ML SYRINGE IV PRN ×4 (01:37→21:49)
[2020-09-15] MEDS: ZOSYN 3.375 GM Q8H per EXTENDED INFUSION IV SCH ×3 (05:36→21:54)
[2020-09-15] MEDS: Lactulose 30 ml UDC PO SCH ×2 (08:21→21:49)
[2020-09-15] MEDS: Fluticasone NASAL SPRAY 50MCG 16 gm SPRAY BTL BOTH NARES SCH (08:21)
[2020-09-15 08:22] LABS: ABS Eosinophils 0.1 10^3/ul (0-0.6); ABS Lymphocytes 1.2 10^3/ul (1.0-4.8); ABS Monocytes 0.9 10^3/ul (0-0.8); ABS Neutrophils 7.5 10^3/ul (1.5-7.7); Eosinophil % 1.4 %; Hematocrit 26 % (35-47); Hemoglobin 9.1 g/dL (12.0-16.0); Mean Corpuscular HGB Conc 35 g/dL (31-36); Mean Corpuscular Hemoglobin 36 pg (27-31); Mean Corpuscular Volume 104 fL (80-97); Mean Platelet Volume 7.6 fL (7.4-10.4); Platelet Count 179 10^3/uL (150-450); Red Blood Count 2.51 10^6 /uL (3.70-4.87); Red Cell Distribution Width 16 % (10-15); White Blood Count 9.7 10^3/uL (3.5-10.8)
[2020-09-15 08:36] LABS: Albumin 2.1 g/dL (3.2-5.2); Albumin/Globulin Ratio 0.6 (1-3); BUN/Creatinine Ratio 55.6 (8-20); Calcium 8.4 mg/dL (8.6-10.3); EGFR African American 168.7 (>60); EGFR Non-African American 139.4 (>60); Globulin 3.8 g/dL (2-4); Potassium 3.7 mmol/L (3.5-5.0); Total Bilirubin 2.2 mg/dL (0.2-1.0); Total Protein 5.9 g/dL (6.4-8.9)
[2020-09-15 09:42] LABS: CRP High Sensitivity 117.9 mg/L (<2.00)
[2020-09-15] MEDS: Polyethylene Glycol 3350 17 GM PACKET PO SCH (21:49)
[2020-09-16] MEDS: ZOSYN 3.375 GM Q8H per EXTENDED INFUSION IV SCH ×3 (05:53→20:24)
[2020-09-16] MEDS: Polyethylene Glycol 3350 17 GM PACKET PO SCH ×2 (07:58→21:29)
[2020-09-16] MEDS: Fluticasone NASAL SPRAY 50MCG 16 gm SPRAY BTL BOTH NARES SCH (07:58)
[2020-09-16] MEDS: Lactulose 30 ml UDC PO SCH ×2 (07:59→20:23)
[2020-09-16 08:31] LABS: ABS Basophils 0.1 10^3/ul (0-0.2); ABS Eosinophils 0.1 10^3/ul (0-0.6); ABS Lymphocytes 1.2 10^3/ul (1.0-4.8); ABS Monocytes 0.8 10^3/ul (0-0.8); ABS Neutrophils 5.9 10^3/ul (1.5-7.7); Eosinophil % 1.8 %; Hematocrit 28 % (35-47); Hemoglobin 9.9 g/dL (12.0-16.0); Lymphocyte % 14.7 %; Mean Corpuscular HGB Conc 36 g/dL (31-36); Mean Corpuscular Hemoglobin 37 pg (27-31); Mean Corpuscular Volume 104 fL (80-97); Mean Platelet Volume 7.4 fL (7.4-10.4); Platelet Count 214 10^3/uL (150-450); Red Blood Count 2.67 10^6 /uL (3.70-4.87); Red Cell Distribution Width 15 % (10-15); White Blood Count 8.1 10^3/uL (3.5-10.8)
[2020-09-16 08:55] LABS: Albumin 2.2 g/dL (3.2-5.2); Albumin/Globulin Ratio 0.5 (1-3); Calcium 8.6 mg/dL (8.6-10.3); EGFR African American 173.1 (>60); EGFR Non-African American 143.1 (>60); Globulin 4.1 g/dL (2-4); Potassium 3.8 mmol/L (3.5-5.0); Total Bilirubin 2.2 mg/dL (0.2-1.0); Total Protein 6.3 g/dL (6.4-8.9)
[2020-09-16 10:13] LABS: C Reactive Protein 99.81 mg/L (<8.01)
[2020-09-16] MEDS: Morphine 2 MG/ML SYRINGE IV PRN ×2 (10:44→16:41)
[2020-09-17] MEDS: ZOSYN 3.375 GM Q8H per EXTENDED INFUSION IV SCH ×3 (05:26→20:26)
[2020-09-17 06:32] LABS: Albumin/Globulin Ratio 0.5 (1-3); BUN/Creatinine Ratio 44.2 (8-20); Calcium 8.6 mg/dL (8.6-10.3); EGFR African American 177.8 (>60); EGFR Non-African American 146.9 (>60); Globulin 3.8 g/dL (2-4); Potassium 3.8 mmol/L (3.5-5.0); Total Bilirubin 2.1 mg/dL (0.2-1.0); Total Protein 5.8 g/dL (6.4-8.9)
[2020-09-17 06:39] LABS: ABS Basophils 0.1 10^3/ul (0-0.2); ABS Eosinophils 0.1 10^3/ul (0-0.6); ABS Lymphocytes 1.1 10^3/ul (1.0-4.8); ABS Monocytes 0.6 10^3/ul (0-0.8); ABS Neutrophils 5.4 10^3/ul (1.5-7.7); Hematocrit 27 % (35-47); Hemoglobin 9.3 g/dL (12.0-16.0); Lymphocyte % 14.6 %; Mean Corpuscular HGB Conc 35 g/dL (31-36); Mean Corpuscular Hemoglobin 37 pg (27-31); Mean Corpuscular Volume 106 fL (80-97); Mean Platelet Volume 7.5 fL (7.4-10.4); Nucleated Red Blood Cells % 0.1; Platelet Count 205 10^3/uL (150-450); Red Blood Count 2.53 10^6 /uL (3.70-4.87); Red Cell Distribution Width 16 % (10-15); White Blood Count 7.3 10^3/uL (3.5-10.8)
[2020-09-17] MEDS: Lactulose 30 ml UDC PO SCH ×2 (08:23→20:21)
[2020-09-17] MEDS: Polyethylene Glycol 3350 17 GM PACKET PO SCH ×2 (08:23→20:21)
[2020-09-17] MEDS: Fluticasone NASAL SPRAY 50MCG 16 gm SPRAY BTL BOTH NARES SCH (08:24)
[2020-09-17] MEDS: Morphine 2 MG/ML SYRINGE IV PRN ×2 (10:54→15:22)
[2020-09-18 05:11] LABS: ABS Eosinophils 0.1 10^3/ul (0-0.6); ABS Monocytes 0.7 10^3/ul (0-0.8); ABS Neutrophils 6.1 10^3/ul (1.5-7.7); Eosinophil % 1.4 %; Hematocrit 28 % (35-47); Hemoglobin 9.7 g/dL (12.0-16.0); Lymphocyte % 12.8 %; Mean Corpuscular HGB Conc 35 g/dL (31-36); Mean Corpuscular Hemoglobin 37 pg (27-31); Mean Corpuscular Volume 106 fL (80-97); Mean Platelet Volume 7.3 fL (7.4-10.4); Nucleated Red Blood Cells % 0.2; Platelet Count 249 10^3/uL (150-450); Red Blood Count 2.61 10^6 /uL (3.70-4.87); Red Cell Distribution Width 16 % (10-15)
[2020-09-18] MEDS: ZOSYN 3.375 GM Q8H per EXTENDED INFUSION IV SCH ×2 (05:13→14:54)
[2020-09-18 05:23] LABS: INR 1.66 (0.82-1.09)
[2020-09-18 05:26] LABS: Albumin 2.1 g/dL (3.2-5.2); Albumin/Globulin Ratio 0.5 (1-3); BUN/Creatinine Ratio 44.2 (8-20); Calcium 8.6 mg/dL (8.6-10.3); EGFR African American 177.8 (>60); EGFR Non-African American 146.9 (>60); Magnesium 1.6 mg/dL (1.9-2.7); Potassium 3.9 mmol/L (3.5-5.0); Total Bilirubin 2.1 mg/dL (0.2-1.0); Total Protein 6.1 g/dL (6.4-8.9)
[2020-09-18] MEDS: Polyethylene Glycol 3350 17 GM PACKET PO SCH ×2 (08:05→20:29)
[2020-09-18] MEDS: Fluticasone NASAL SPRAY 50MCG 16 gm SPRAY BTL BOTH NARES SCH (08:05)
[2020-09-18] MEDS: Lactulose 30 ml UDC PO SCH ×2 (08:05→21:43)
[2020-09-18] MEDS: Morphine 2 MG/ML SYRINGE IV PRN (11:20)
[2020-09-18] MEDS ORDERED: Magnesium Sulf 4 GM/100 ML IV 4,000 MG/100 ML BAG IVPB ONE (12:00)
[2020-09-19] MEDS: Morphine 2 MG/ML SYRINGE IV PRN ×2 (04:07→17:26)
[2020-09-19 06:49] LABS: Albumin/Globulin Ratio 0.5 (1-3); Calcium 8.1 mg/dL (8.6-10.3); EGFR Non-African American 169.4 (>60); Globulin 3.9 g/dL (2-4); Potassium 3.8 mmol/L (3.5-5.0); Total Bilirubin 1.9 mg/dL (0.2-1.0); Total Protein 5.9 g/dL (6.4-8.9)
[2020-09-19 07:07] LABS: ABS Basophils 0.1 10^3/ul (0-0.2); ABS Eosinophils 0.1 10^3/ul (0-0.6); ABS Lymphocytes 1.1 10^3/ul (1.0-4.8); ABS Monocytes 0.8 10^3/ul (0-0.8); ABS Neutrophils 6.2 10^3/ul (1.5-7.7); Eosinophil % 1.1 %; Hematocrit 26 % (35-47); Hemoglobin 8.9 g/dL (12.0-16.0); Lymphocyte % 13.8 %; Mean Corpuscular HGB Conc 35 g/dL (31-36); Mean Corpuscular Hemoglobin 36 pg (27-31); Mean Corpuscular Volume 106 fL (80-97); Mean Platelet Volume 7.2 fL (7.4-10.4); Nucleated Red Blood Cells % 0.1; Platelet Count 275 10^3/uL (150-450); Red Blood Count 2.44 10^6 /uL (3.70-4.87); Red Cell Distribution Width 16 % (10-15); White Blood Count 8.3 10^3/uL (3.5-10.8)
[2020-09-19] MEDS: Polyethylene Glycol 3350 17 GM PACKET PO SCH ×2 (09:33→20:07)
[2020-09-19] MEDS: Fluticasone NASAL SPRAY 50MCG 16 gm SPRAY BTL BOTH NARES SCH (09:38)
[2020-09-19] MEDS: Lactulose 30 ml UDC PO SCH ×2 (09:38→20:05)
[2020-09-20 06:26] LABS: Albumin/Globulin Ratio 0.5 (1-3); Calcium 8.2 mg/dL (8.6-10.3); EGFR Non-African American 169.4 (>60); Globulin 3.9 g/dL (2-4); Total Bilirubin 1.7 mg/dL (0.2-1.0); Total Protein 5.9 g/dL (6.4-8.9)
[2020-09-20] MEDS: Fluticasone NASAL SPRAY 50MCG 16 gm SPRAY BTL BOTH NARES SCH (08:57)
[2020-09-20] MEDS: Lactulose 30 ml UDC PO SCH ×2 (08:57→19:46)
[2020-09-20] MEDS: Polyethylene Glycol 3350 17 GM PACKET PO SCH ×2 (08:57→19:45)
[2020-09-21 05:25] LABS: Hematocrit 28 % (35-47); Hemoglobin 9.6 g/dL (12.0-16.0); Mean Corpuscular HGB Conc 34 g/dL (31-36); Mean Corpuscular Hemoglobin 37 pg (27-31); Mean Corpuscular Volume 106 fL (80-97); Platelet Count 336 10^3/uL (150-450); Red Blood Count 2.62 10^6 /uL (3.70-4.87); Red Cell Distribution Width 17 % (10-15); White Blood Count 7.7 10^3/uL (3.5-10.8)
[2020-09-21 05:46] LABS: BUN/Creatinine Ratio 46.3 (8-20); Calcium 8.5 mg/dL (8.6-10.3); EGFR African American 187.8 (>60); EGFR Non-African American 155.2 (>60); Potassium 4.5 mmol/L (3.5-5.0)
[2020-09-21] MEDS: Fluticasone NASAL SPRAY 50MCG 16 gm SPRAY BTL BOTH NARES SCH (08:05)
[2020-09-21] MEDS: Polyethylene Glycol 3350 17 GM PACKET PO SCH ×2 (08:05→21:54)
[2020-09-21] MEDS: Lactulose 30 ml UDC PO SCH ×2 (08:05→21:54)
[2020-09-21] MEDS: Sulfamethox/Trimethoprim DS TAB 800/160 mg PO SCH (08:07)
[2020-09-22 06:17] LABS: INR 1.69 (0.82-1.09)
[2020-09-22 06:32] LABS: Albumin 2.1 g/dL (3.2-5.2); Albumin/Globulin Ratio 0.5 (1-3); BUN/Creatinine Ratio 42.9 (8-20); Calcium 8.8 mg/dL (8.6-10.3); EGFR African American 152.9 (>60); EGFR Non-African American 126.4 (>60); Globulin 4.1 g/dL (2-4); Potassium 4.6 mmol/L (3.5-5.0); Total Bilirubin 1.6 mg/dL (0.2-1.0); Total Protein 6.2 g/dL (6.4-8.9)
[2020-09-22] MEDS: Polyethylene Glycol 3350 17 GM PACKET PO SCH (07:33)
[2020-09-22] MEDS: Lactulose 30 ml UDC PO SCH (07:33)
[2020-09-22] MEDS: Sulfamethox/Trimethoprim DS TAB 800/160 mg PO SCH (07:33)
[2020-09-22] MEDS: Fluticasone NASAL SPRAY 50MCG 16 gm SPRAY BTL BOTH NARES SCH (07:34)
[2020-09-22 16:14] VITALS: BP 125/45
== END 2020-09-22 17:20 | disposition home or self-care (01) | DRG 871 ==
LOC: ED 11:40 → MED 17:12
PROVIDERS: ADMIT Internal Medicine; ATTEND Hospitalist

== ENCOUNTER 2020-10-18 23:59 | Inpatient (IN) ==
[2020-10-19 01:19] LABS: ABS Eosinophils 0.1 10^3/ul (0-0.6); ABS Monocytes 0.6 10^3/ul (0-0.8); ABS Neutrophils 3.2 10^3/ul (1.5-7.7); Eosinophil % 1.3 %; Hematocrit 34 % (35-47); Hemoglobin 11.7 g/dL (12.0-16.0); Lymphocyte % 20.1 %; Mean Corpuscular HGB Conc 35 g/dL (31-36); Mean Corpuscular Hemoglobin 36 pg (27-31); Mean Corpuscular Volume 106 fL (80-97); Mean Platelet Volume 7.1 fL (7.4-10.4); Nucleated Red Blood Cells % 0.1; Platelet Count 202 10^3/uL (150-450); Red Blood Count 3.21 10^6 /uL (3.70-4.87); Red Cell Distribution Width 15 % (10-15); White Blood Count 4.9 10^3/uL (3.5-10.8)
[2020-10-19 01:24] LABS: INR 1.46 (0.82-1.09)
[2020-10-19 01:30] LABS: ALT 53 U/L (7-52); Albumin 2.5 g/dL (3.2-5.2); Albumin/Globulin Ratio 0.5 (1-3); Alkaline Phosphatase 161 U/L (34-104); BUN/Creatinine Ratio 50.9 (8-20); Blood Urea Nitrogen 28 mg/dL (6-24); CO2 Carbon Dioxide 22 mmol/L (22-32); Calcium 9.2 mg/dL (8.6-10.3); Chloride 103 mmol/L (101-111); Creatine Kinase 46 U/L (10-223); EGFR African American 133.8 (>60); EGFR Non-African American 110.6 (>60); Globulin 4.7 g/dL (2-4); Glucose 96 mg/dL (70-100); Sodium 130 mmol/L (135-145); Total Protein 7.2 g/dL (6.4-8.9)
[2020-10-19 01:32] LABS: Troponin I 0.01 ng/mL (<0.03)
[2020-10-19 01:34] LABS: Anion Gap 5 mmol/L (2-11)
[2020-10-19 01:44] LABS: Acetaminophen < 15 mcg/mL; Alcohol, S < 10 mg/dL (<10); Salicylate < 2.50 mg/dL (<30)
[2020-10-19 02:00] LABS: TSH Ultra Thyroid Stim Horm 5.64 mcIU/mL (0.34-5.60)
[2020-10-19 02:15] LABS: Potassium Redraw 4.2 mmol/L (3.5-5.0)
[2020-10-19] MEDS ORDERED: Lactulose 30 ml UDC PO ONE (02:36)
[2020-10-19] MEDS ORDERED: Polyethylene Glycol 3350 17 GM PACKET PO PRN (03:17)
[2020-10-19 08:27] LABS: Total T3 68 ng/dL (87-178)
[2020-10-19] MEDS: Lactulose 30 ml UDC PO SCH ×3 (08:42→20:09)
[2020-10-19] MEDS: Sulfamethox/Trimethoprim DS TAB 800/160 mg PO SCH (08:42)
[2020-10-19] MEDS: Fluticasone NASAL SPRAY 50MCG 16 gm SPRAY BTL BOTH NARES SCH (11:10)
[2020-10-19] MEDS ORDERED: Albumin Human 25% 25 GM/100 ML BTL IV SCH (15:00)
[2020-10-19] MEDS ORDERED: Albumin Human 25% 25 GM/100 ML BTL IV ONE (16:30)
[2020-10-20 06:17] LABS: ABS Basophils 0.1 10^3/ul (0-0.2); ABS Eosinophils 0.1 10^3/ul (0-0.6); ABS Lymphocytes 1.5 10^3/ul (1.0-4.8); ABS Monocytes 0.6 10^3/ul (0-0.8); ABS Neutrophils 2.3 10^3/ul (1.5-7.7); Eosinophil % 2.4 %; Hematocrit 30 % (35-47); Hemoglobin 10.2 g/dL (12.0-16.0); Lymphocyte % 33.7 %; Mean Corpuscular HGB Conc 34 g/dL (31-36); Mean Corpuscular Hemoglobin 36 pg (27-31); Mean Corpuscular Volume 107 fL (80-97); Mean Platelet Volume 6.6 fL (7.4-10.4); Nucleated Red Blood Cells % 0.3; Platelet Count 165 10^3/uL (150-450); Red Blood Count 2.82 10^6 /uL (3.70-4.87); Red Cell Distribution Width 14 % (10-15); White Blood Count 4.6 10^3/uL (3.5-10.8)
[2020-10-20 06:20] LABS: Albumin 2.2 g/dL (3.2-5.2); Albumin/Globulin Ratio 0.6 (1-3); BUN/Creatinine Ratio 52.8 (8-20); Calcium 8.7 mg/dL (8.6-10.3); EGFR African American 139.7 (>60); EGFR Non-African American 115.4 (>60); Globulin 3.5 g/dL (2-4); Potassium 4.2 mmol/L (3.5-5.0); Total Bilirubin 1.4 mg/dL (0.2-1.0); Total Protein 5.7 g/dL (6.4-8.9)
[2020-10-20] MEDS: Sulfamethox/Trimethoprim DS TAB 800/160 mg PO SCH (10:10)
[2020-10-20] MEDS: Lactulose 30 ml UDC PO SCH ×3 (10:14→21:31)
[2020-10-20] MEDS: Fluticasone NASAL SPRAY 50MCG 16 gm SPRAY BTL BOTH NARES SCH (10:14)
[2020-10-20] MEDS: Enoxaparin 40 MG/0.4 ML SYR SUBCUT SCH (10:14)
[2020-10-21 05:44] LABS: ABS Basophils 0.1 10^3/ul (0-0.2); ABS Eosinophils 0.1 10^3/ul (0-0.6); ABS Lymphocytes 1.4 10^3/ul (1.0-4.8); ABS Monocytes 0.6 10^3/ul (0-0.8); ABS Neutrophils 2.6 10^3/ul (1.5-7.7); Eosinophil % 2.4 %; Hematocrit 33 % (35-47); Hemoglobin 11.3 g/dL (12.0-16.0); Lymphocyte % 29.4 %; Mean Corpuscular HGB Conc 34 g/dL (31-36); Mean Corpuscular Hemoglobin 36 pg (27-31); Mean Corpuscular Volume 106 fL (80-97); Mean Platelet Volume 6.7 fL (7.4-10.4); Nucleated Red Blood Cells % 0.3; Platelet Count 177 10^3/uL (150-450); Red Blood Count 3.12 10^6 /uL (3.70-4.87); Red Cell Distribution Width 15 % (10-15); White Blood Count 4.8 10^3/uL (3.5-10.8)
[2020-10-21 06:04] LABS: Albumin 2.3 g/dL (3.2-5.2); Albumin/Globulin Ratio 0.6 (1-3); Calcium 8.9 mg/dL (8.6-10.3); Globulin 3.8 g/dL (2-4); Potassium 4.2 mmol/L (3.5-5.0); Total Bilirubin 1.2 mg/dL (0.2-1.0); Total Protein 6.1 g/dL (6.4-8.9)
[2020-10-21] MEDS ORDERED: Lactulose 300 ML for PR 200 GM/300 ML BTL PR ONE (10:25)
[2020-10-21] MEDS: Lactulose 30 ml UDC PO SCH ×4 (11:24→22:07)
[2020-10-21] MEDS: Fluticasone NASAL SPRAY 50MCG 16 gm SPRAY BTL BOTH NARES SCH (11:40)
[2020-10-21] MEDS: Enoxaparin 40 MG/0.4 ML SYR SUBCUT SCH (11:40)
[2020-10-21 11:46] LABS: Urine Appearance Cloudy; Urine Bilirubin Negative (Negative); Urine Blood Negative (Negative); Urine Color Amber; Urine Glucose Negative (Negative); Urine Ketones Negative (Negative); Urine Nitrite Negative (Negative); Urine Protein Negative (Negative); Urine Specific Gravity 1.024 (1.002-1.030); Urine Urobilinogen Positive (Negative)
[2020-10-21] MEDS: Sulfamethox/Trimethoprim DS TAB 800/160 mg PO SCH (15:38)
[2020-10-22 08:59] LABS: INR 1.5 (0.82-1.09)
[2020-10-22 09:05] LABS: ABS Eosinophils 0.1 10^3/ul (0-0.6); ABS Lymphocytes 1.1 10^3/ul (1.0-4.8); ABS Monocytes 0.6 10^3/ul (0-0.8); ABS Neutrophils 2.9 10^3/ul (1.5-7.7); Eosinophil % 2.1 %; Hematocrit 34 % (35-47); Hemoglobin 11.2 g/dL (12.0-16.0); Lymphocyte % 23.6 %; Mean Corpuscular HGB Conc 33 g/dL (31-36); Mean Corpuscular Hemoglobin 36 pg (27-31); Mean Corpuscular Volume 108 fL (80-97); Mean Platelet Volume 6.8 fL (7.4-10.4); Nucleated Red Blood Cells % 0.1; Platelet Count 180 10^3/uL (150-450); Red Blood Count 3.14 10^6 /uL (3.70-4.87); Red Cell Distribution Width 15 % (10-15); White Blood Count 4.8 10^3/uL (3.5-10.8)
[2020-10-22] MEDS: Enoxaparin 40 MG/0.4 ML SYR SUBCUT SCH (09:06)
[2020-10-22] MEDS: Lactulose 30 ml UDC PO SCH ×4 (09:07→23:36)
[2020-10-22 09:10] LABS: Albumin 2.5 g/dL (3.2-5.2); Albumin/Globulin Ratio 0.6 (1-3); BUN/Creatinine Ratio 43.1 (8-20); Calcium 9.3 mg/dL (8.6-10.3); EGFR African American 125.9 (>60); Globulin 4.1 g/dL (2-4); Potassium 3.7 mmol/L (3.5-5.0); Total Bilirubin 1.2 mg/dL (0.2-1.0); Total Protein 6.6 g/dL (6.4-8.9)
[2020-10-22] MEDS: Sulfamethox/Trimethoprim DS TAB 800/160 mg PO SCH (10:44)
[2020-10-22] MEDS: Fluticasone NASAL SPRAY 50MCG 16 gm SPRAY BTL BOTH NARES SCH (10:57)
[2020-10-22 15:58] LABS: Body Fluid Source Peritonial Fluid
[2020-10-22] MEDS ORDERED: Lactulose 300 ML for PR 200 GM/300 ML BTL PR ONE (18:49)
[2020-10-22 19:03] LABS: Body Fluid Mono 34 %; Body Fluid Other Cells 3
[2020-10-22] MEDS: Albumin Human 25% 25 GM/100 ML BTL IV SCH (23:58)
[2020-10-23 05:15] LABS: ABS Basophils 0.1 10^3/ul (0-0.2); ABS Eosinophils 0.1 10^3/ul (0-0.6); ABS Lymphocytes 1.2 10^3/ul (1.0-4.8); ABS Monocytes 0.7 10^3/ul (0-0.8); ABS Neutrophils 3.5 10^3/ul (1.5-7.7); Hematocrit 29 % (35-47); Hemoglobin 10.1 g/dL (12.0-16.0); Lymphocyte % 20.9 %; Mean Corpuscular HGB Conc 35 g/dL (31-36); Mean Corpuscular Hemoglobin 37 pg (27-31); Mean Corpuscular Volume 106 fL (80-97); Mean Platelet Volume 6.6 fL (7.4-10.4); Nucleated Red Blood Cells % 0.1; Platelet Count 164 10^3/uL (150-450); Red Blood Count 2.76 10^6 /uL (3.70-4.87); Red Cell Distribution Width 14 % (10-15); White Blood Count 5.5 10^3/uL (3.5-10.8)
[2020-10-23 05:27] LABS: Albumin 2.5 g/dL (3.2-5.2); Albumin/Globulin Ratio 0.7 (1-3); BUN/Creatinine Ratio 44.6 (8-20); Calcium 9.1 mg/dL (8.6-10.3); EGFR African American 131.1 (>60); EGFR Non-African American 108.3 (>60); Globulin 3.5 g/dL (2-4); Total Bilirubin 0.9 mg/dL (0.2-1.0)
[2020-10-23] MEDS: Albumin Human 25% 25 GM/100 ML BTL IV SCH ×3 (05:45→22:22)
[2020-10-23 07:17] LABS: INR 1.69 (0.82-1.09)
[2020-10-23] MEDS: Enoxaparin 40 MG/0.4 ML SYR SUBCUT SCH (10:21)
[2020-10-23] MEDS: Fluticasone NASAL SPRAY 50MCG 16 gm SPRAY BTL BOTH NARES SCH (10:21)
[2020-10-23] MEDS: Sulfamethox/Trimethoprim DS TAB 800/160 mg PO SCH (10:21)
[2020-10-23] MEDS: Lactulose 30 ml UDC PO SCH ×4 (10:22→22:22)
[2020-10-23 15:39] LABS: Fluid Type, Glucose PERITONEAL; Glucose, BF 122 mg/dL
[2020-10-23 15:47] LABS: Body Fluid Bilirubin 0.2 mg/dL; Fluid Type PERITONEAL
[2020-10-23 15:56] LABS: Albumin, BF 0.8 g/dL; Fluid Type, Albumin PERITONEAL; Fluid Type, Protein, Total PERITONEAL
[2020-10-23] MEDS ORDERED: Lactulose 300 ML for PR 10 GM/15 ML BTL PR ONE ×2 (18:30→20:00)
[2020-10-24 05:52] LABS: ABS Basophils 0.1 10^3/ul (0-0.2); ABS Eosinophils 0.2 10^3/ul (0-0.6); ABS Lymphocytes 1.2 10^3/ul (1.0-4.8); ABS Monocytes 0.6 10^3/ul (0-0.8); ABS Neutrophils 2.7 10^3/ul (1.5-7.7); Hematocrit 30 % (35-47); Hemoglobin 10.2 g/dL (12.0-16.0); Mean Corpuscular HGB Conc 35 g/dL (31-36); Mean Corpuscular Hemoglobin 37 pg (27-31); Mean Corpuscular Volume 106 fL (80-97); Nucleated Red Blood Cells % 0.1; Platelet Count 156 10^3/uL (150-450); Red Blood Count 2.79 10^6 /uL (3.70-4.87); Red Cell Distribution Width 15 % (10-15); White Blood Count 4.7 10^3/uL (3.5-10.8)
[2020-10-24 05:58] LABS: Albumin 3.1 g/dL (3.2-5.2); Albumin/Globulin Ratio 1.1 (1-3); BUN/Creatinine Ratio 40.4 (8-20); Calcium 9.3 mg/dL (8.6-10.3); EGFR African American 128.4 (>60); EGFR Non-African American 106.1 (>60); Globulin 2.8 g/dL (2-4); Total Protein 5.9 g/dL (6.4-8.9)
[2020-10-24] MEDS: Albumin Human 25% 25 GM/100 ML BTL IV SCH ×3 (05:58→18:25)
[2020-10-24] MEDS: Fluticasone NASAL SPRAY 50MCG 16 gm SPRAY BTL BOTH NARES SCH (07:48)
[2020-10-24] MEDS: Lactulose 30 ml UDC PO SCH ×4 (07:48→22:57)
[2020-10-24] MEDS: Enoxaparin 40 MG/0.4 ML SYR SUBCUT SCH (07:50)
[2020-10-24] MEDS: Sulfamethox/Trimethoprim DS TAB 800/160 mg PO SCH (07:51)
[2020-10-24 12:51] LABS: Lactate Dehydrogenase, BF 70 U/L
[2020-10-24] MEDS: Polyethylene Glycol 3350 17 GM PACKET PO SCH ×2 (17:00→22:57)
[2020-10-24] MEDS ORDERED: Lactulose 300 ML for PR 200 GM/300 ML BTL PR PRN (18:00)
[2020-10-25 05:18] LABS: INR 1.73 (0.82-1.09)
[2020-10-25 05:22] LABS: Albumin 3.3 g/dL (3.2-5.2); Albumin/Globulin Ratio 1.3 (1-3); BUN/Creatinine Ratio 33.9 (8-20); Calcium 9.5 mg/dL (8.6-10.3); EGFR African American 131.1 (>60); EGFR Non-African American 108.3 (>60); Globulin 2.6 g/dL (2-4); Potassium 4.1 mmol/L (3.5-5.0); Total Bilirubin 0.9 mg/dL (0.2-1.0); Total Protein 5.9 g/dL (6.4-8.9)
[2020-10-25 05:46] LABS: ABS Eosinophils 0.1 10^3/ul (0-0.6); ABS Lymphocytes 0.9 10^3/ul (1.0-4.8); ABS Monocytes 0.5 10^3/ul (0-0.8); ABS Neutrophils 2.7 10^3/ul (1.5-7.7); Hematocrit 27 % (35-47); Hemoglobin 9.3 g/dL (12.0-16.0); Lymphocyte % 21.4 %; Mean Corpuscular HGB Conc 34 g/dL (31-36); Mean Corpuscular Hemoglobin 36 pg (27-31); Mean Corpuscular Volume 106 fL (80-97); Mean Platelet Volume 6.8 fL (7.4-10.4); Platelet Count 139 10^3/uL (150-450); Red Blood Count 2.57 10^6 /uL (3.70-4.87); Red Cell Distribution Width 14 % (10-15); White Blood Count 4.2 10^3/uL (3.5-10.8)
[2020-10-25] MEDS: Polyethylene Glycol 3350 17 GM PACKET PO SCH ×2 (08:16→22:26)
[2020-10-25] MEDS: Enoxaparin 40 MG/0.4 ML SYR SUBCUT SCH (09:20)
[2020-10-25] MEDS: Lactulose 30 ml UDC PO SCH ×4 (09:20→22:28)
[2020-10-25] MEDS: Fluticasone NASAL SPRAY 50MCG 16 gm SPRAY BTL BOTH NARES SCH (09:22)
[2020-10-25] MEDS: Sulfamethox/Trimethoprim DS TAB 800/160 mg PO SCH (09:22)
[2020-10-25] MEDS: Albumin Human 25% 25 GM/100 ML BTL IV SCH ×2 (11:32→12:45)
[2020-10-26 04:52] LABS: ABS Eosinophils 0.1 10^3/ul (0-0.6); ABS Lymphocytes 0.9 10^3/ul (1.0-4.8); ABS Monocytes 0.4 10^3/ul (0-0.8); ABS Neutrophils 2.1 10^3/ul (1.5-7.7); Eosinophil % 2.7 %; Hematocrit 27 % (35-47); Hemoglobin 9.3 g/dL (12.0-16.0); Lymphocyte % 25.5 %; Mean Corpuscular HGB Conc 35 g/dL (31-36); Mean Corpuscular Hemoglobin 36 pg (27-31); Mean Corpuscular Volume 106 fL (80-97); Mean Platelet Volume 6.6 fL (7.4-10.4); Platelet Count 130 10^3/uL (150-450); Red Blood Count 2.55 10^6 /uL (3.70-4.87); Red Cell Distribution Width 14 % (10-15); White Blood Count 3.5 10^3/uL (3.5-10.8)
[2020-10-26 04:54] LABS: INR 1.8 (0.82-1.09)
[2020-10-26 05:05] LABS: Albumin 3.3 g/dL (3.2-5.2); Albumin/Globulin Ratio 1.3 (1-3); BUN/Creatinine Ratio 38.5 (8-20); Calcium 9.2 mg/dL (8.6-10.3); EGFR African American 142.8 (>60); Globulin 2.6 g/dL (2-4); Magnesium 1.6 mg/dL (1.9-2.7); Potassium 4.3 mmol/L (3.5-5.0); Total Bilirubin 1.1 mg/dL (0.2-1.0); Total Protein 5.9 g/dL (6.4-8.9)
[2020-10-26] MEDS: Lactulose 30 ml UDC PO SCH ×2 (10:02→13:08)
[2020-10-26] MEDS: Polyethylene Glycol 3350 17 GM PACKET PO SCH (10:06)
[2020-10-26] MEDS: Enoxaparin 40 MG/0.4 ML SYR SUBCUT SCH (10:09)
[2020-10-26] MEDS: Fluticasone NASAL SPRAY 50MCG 16 gm SPRAY BTL BOTH NARES SCH (10:10)
[2020-10-26] MEDS: Sulfamethox/Trimethoprim DS TAB 800/160 mg PO SCH (10:13)
[2020-10-26] MEDS: Albumin Human 25% 25 GM/100 ML BTL IV SCH ×2 (13:11→14:51)
[2020-10-26 16:29] VITALS: BP 102/48
== END 2020-10-26 17:50 | disposition home or self-care (01) | DRG 442 ==
LOC: ED 23:59 → SSU 10-19 06:20 → MED 10-20 18:16 → SSU 10-21 20:37
PROVIDERS: ADMIT Student in an Organized Health Care Education/Training Program; ATTEND Internal Medicine

== ENCOUNTER 2020-11-16 21:15 | Inpatient (IN) ==
[2020-11-16 22:42] LABS: ABS Monocytes 0.6 10^3/ul (0-0.8); Hematocrit 33 % (35-47); Hemoglobin 11.6 g/dL (12.0-16.0); Lymphocyte % 20.9 %; Mean Corpuscular HGB Conc 35 g/dL (31-36); Mean Corpuscular Hemoglobin 37 pg (27-31); Mean Corpuscular Volume 106 fL (80-97); Mean Platelet Volume 7.4 fL (7.4-10.4); Platelet Count 195 10^3/uL (150-450); Red Blood Count 3.13 10^6 /uL (3.70-4.87); Red Cell Distribution Width 15 % (10-15); White Blood Count 4.7 10^3/uL (3.5-10.8)
[2020-11-16 22:59] LABS: Alcohol, S < 10 mg/dL (<10)
[2020-11-16 23:01] LABS: ALT 88 U/L (7-52); AST 114 U/L (13-39); Albumin 3.5 g/dL (3.2-5.2); Albumin/Globulin Ratio 0.8 (1-3); Alkaline Phosphatase 300 U/L (34-104); Anion Gap 6 mmol/L (2-11); Blood Urea Nitrogen 31 mg/dL (6-24); CO2 Carbon Dioxide 23 mmol/L (22-32); Calcium 10.2 mg/dL (8.6-10.3); Chloride 97 mmol/L (101-111); EGFR African American 69.5 (>60); EGFR Non-African American 57.5 (>60); Globulin 4.4 g/dL (2-4); Glucose 105 mg/dL (70-100); Potassium 4.9 mmol/L (3.5-5.0); Sodium 126 mmol/L (135-145); Total Protein 7.9 g/dL (6.4-8.9)
[2020-11-16 23:07] LABS: Troponin I 0.03 ng/mL (<0.03)
[2020-11-16] MEDS ORDERED: Lactulose 30 ml UDC PO ONE (23:17)
[2020-11-17] MEDS ORDERED: Lactulose 30 ml UDC ONE (00:22)
[2020-11-17] MEDS ORDERED: NS 0.9% 500 ml BAG 500 ML IV ONE (00:44)
[2020-11-17 07:21] LABS: CO2 Carbon Dioxide 15 mmol/L (22-32); Calcium 9.6 mg/dL (8.6-10.3); Chloride 100 mmol/L (101-111); Sodium 122 mmol/L (135-145)
[2020-11-17 07:27] LABS: Blood Urea Nitrogen 26 mg/dL (6-24); EGFR African American 86.8 (>60); EGFR Non-African American 71.8 (>60); Glucose 86 mg/dL (70-100)
[2020-11-17 07:49] LABS: Anion Gap 7 mmol/L (2-11)
[2020-11-17 08:12] LABS: Troponin I 0.03 ng/mL (<0.03)
[2020-11-17] MEDS: Lactulose 30 ml UDC PO SCH ×5 (09:54→20:57)
[2020-11-17] MEDS: Enoxaparin 40 MG/0.4 ML SYR SUBCUT SCH (09:54)
[2020-11-17] MEDS: Sulfamethox/Trimethoprim DS TAB 800/160 mg PO SCH (10:04)
[2020-11-17] MEDS: Vitamin THERAPEUTIC TAB PO SCH (10:04)
[2020-11-17] MEDS: Polyethylene Glycol 3350 17 GM PACKET PO SCH ×2 (10:04→20:56)
[2020-11-17] MEDS ORDERED: Sodium Phosphate ADULT ENEMA 133 ML BTL PR ONE ×2 (11:00→21:00)
[2020-11-17] MEDS: Lactulose 300 ML for PR 200 GM/300 ML BTL PR SCH ×3 (14:13→21:04)
[2020-11-17 16:57] LABS: INR 1.55 (0.82-1.09)
[2020-11-17 17:27] LABS: Calcium 9.7 mg/dL (8.6-10.3); EGFR African American 90.8 (>60); Potassium 4.3 mmol/L (3.5-5.0)
[2020-11-18 05:46] LABS: ABS Eosinophils 0.1 10^3/ul (0-0.6); ABS Lymphocytes 1.3 10^3/ul (1.0-4.8); ABS Monocytes 0.6 10^3/ul (0-0.8); Hematocrit 31 % (35-47); Hemoglobin 10.9 g/dL (12.0-16.0); Lymphocyte % 26.3 %; Mean Corpuscular HGB Conc 35 g/dL (31-36); Mean Corpuscular Hemoglobin 37 pg (27-31); Mean Corpuscular Volume 105 fL (80-97); Mean Platelet Volume 7.5 fL (7.4-10.4); Platelet Count 187 10^3/uL (150-450); Red Blood Count 2.96 10^6 /uL (3.70-4.87); Red Cell Distribution Width 16 % (10-15)
[2020-11-18 05:51] LABS: INR 1.53 (0.82-1.09)
[2020-11-18 06:01] LABS: Albumin 3.3 g/dL (3.2-5.2); Albumin/Globulin Ratio 0.8 (1-3); Calcium 9.5 mg/dL (8.6-10.3); EGFR African American 104.7 (>60); EGFR Non-African American 86.6 (>60); Magnesium 1.8 mg/dL (1.9-2.7); Potassium 4.1 mmol/L (3.5-5.0); Total Bilirubin 1.3 mg/dL (0.2-1.0); Total Protein 7.3 g/dL (6.4-8.9)
[2020-11-18] MEDS: Sulfamethox/Trimethoprim DS TAB 800/160 mg PO SCH (09:30)
[2020-11-18] MEDS: Vitamin THERAPEUTIC TAB PO SCH (09:31)
[2020-11-18] MEDS: Lactulose 30 ml UDC PO SCH ×3 (09:31→17:53)
[2020-11-18] MEDS: Enoxaparin 40 MG/0.4 ML SYR SUBCUT SCH (09:31)
[2020-11-18] MEDS: Polyethylene Glycol 3350 17 GM PACKET PO SCH ×2 (09:34→20:32)
[2020-11-18] MEDS: Lactulose 300 ML for PR 200 GM/300 ML BTL PR SCH (10:15)
[2020-11-18 11:25] LABS: Urine Appearance Cloudy; Urine Bilirubin Negative (Negative); Urine Blood 1+ (Negative); Urine Color Amber; Urine Glucose Negative (Negative); Urine Ketones Negative (Negative); Urine Nitrite Positive (Negative); Urine Protein 1+(30 mg/dL) (Negative); Urine Specific Gravity 1.024 (1.002-1.030); Urine Urobilinogen Negative (Negative)
[2020-11-18 11:29] LABS: Urine Bacteria 3+ (Absent); Urine Red Blood Cell 2+(6-10/hpf) (Absent); Urine Squamous Epithelial Cell Present (Absent); Urine White Blood Cell 3+(>20/hpf) (Absent)
[2020-11-19 07:15] LABS: ABS Eosinophils 0.1 10^3/ul (0-0.6); ABS Lymphocytes 1.1 10^3/ul (1.0-4.8); ABS Monocytes 0.7 10^3/ul (0-0.8); ABS Neutrophils 3.1 10^3/ul (1.5-7.7); Eosinophil % 1.1 %; Hematocrit 31 % (35-47); Hemoglobin 10.7 g/dL (12.0-16.0); Mean Corpuscular HGB Conc 35 g/dL (31-36); Mean Corpuscular Hemoglobin 37 pg (27-31); Mean Corpuscular Volume 106 fL (80-97); Mean Platelet Volume 7.3 fL (7.4-10.4); Nucleated Red Blood Cells % 0.1; Platelet Count 173 10^3/uL (150-450); Red Cell Distribution Width 15 % (10-15)
[2020-11-19 07:27] LABS: Albumin 3.3 g/dL (3.2-5.2); Albumin/Globulin Ratio 0.8 (1-3); Calcium 9.4 mg/dL (8.6-10.3); EGFR Non-African American 85.1 (>60); Globulin 4.2 g/dL (2-4); Magnesium 1.9 mg/dL (1.9-2.7); Potassium 3.8 mmol/L (3.5-5.0); Total Protein 7.5 g/dL (6.4-8.9)
[2020-11-19] MEDS: Vitamin THERAPEUTIC TAB PO SCH (08:31)
[2020-11-19] MEDS: Enoxaparin 40 MG/0.4 ML SYR SUBCUT SCH (08:31)
[2020-11-19] MEDS: Polyethylene Glycol 3350 17 GM PACKET PO SCH ×3 (08:31→21:24)
[2020-11-19] MEDS: Sulfamethox/Trimethoprim DS TAB 800/160 mg PO SCH (08:31)
[2020-11-19] MEDS ORDERED: Lactulose 300 ML for PR 200 GM/300 ML BTL PR ONE (10:22)
[2020-11-20 06:29] LABS: Hematocrit 30 % (35-47); Hemoglobin 10.4 g/dL (12.0-16.0); Mean Corpuscular HGB Conc 35 g/dL (31-36); Mean Corpuscular Hemoglobin 37 pg (27-31); Mean Corpuscular Volume 105 fL (80-97); Mean Platelet Volume 7.3 fL (7.4-10.4); Platelet Count 168 10^3/uL (150-450); Red Blood Count 2.85 10^6 /uL (3.70-4.87); Red Cell Distribution Width 16 % (10-15); White Blood Count 4.5 10^3/uL (3.5-10.8)
[2020-11-20 06:53] LABS: C Reactive Protein 7.74 mg/L (<8.01); Magnesium 1.9 mg/dL (1.9-2.7)
[2020-11-20 07:20] LABS: Albumin 3.1 g/dL (3.2-5.2); Calcium 9.5 mg/dL (8.6-10.3); Globulin 4.2 g/dL (2-4); Potassium 3.9 mmol/L (3.5-5.0); Total Protein 7.3 g/dL (6.4-8.9)
[2020-11-20 07:21] LABS: Albumin/Globulin Ratio 0.7 (1-3); Total Bilirubin 1.2 mg/dL (0.2-1.0)
[2020-11-20] MEDS: Polyethylene Glycol 3350 17 GM PACKET PO SCH ×3 (09:06→20:23)
[2020-11-20] MEDS: Vitamin THERAPEUTIC TAB PO SCH (09:10)
[2020-11-20] MEDS: LINACLOTIDE 72 MCG PO SCH (09:11)
[2020-11-20] MEDS: Sulfamethox/Trimethoprim DS TAB 800/160 mg PO SCH (09:11)
[2020-11-20] MEDS: Enoxaparin 40 MG/0.4 ML SYR SUBCUT SCH (09:12)
[2020-11-20] MEDS ORDERED: Lactulose 300 ML for PR 200 GM/300 ML BTL PR ONE (10:30)
[2020-11-20] MEDS ORDERED: Vancomycin 1,000 MG in NS 0.9% 250 ml 250 ML IVPB ONE (19:08)
[2020-11-20] MEDS ORDERED: Vancomycin per Pharmacy 1 EA NOTE FOLLOW UP SCH (20:00)
[2020-11-21] MEDS ORDERED: Vancomycin 750 MG in NS 0.9% 250 ML IVPB SCH (04:00)
[2020-11-21 06:20] LABS: Hematocrit 31 % (35-47); Hemoglobin 10.5 g/dL (12.0-16.0); Mean Corpuscular HGB Conc 34 g/dL (31-36); Mean Corpuscular Hemoglobin 36 pg (27-31); Mean Corpuscular Volume 107 fL (80-97); Mean Platelet Volume 7.1 fL (7.4-10.4); Platelet Count 169 10^3/uL (150-450); Red Cell Distribution Width 15 % (10-15); White Blood Count 5.7 10^3/uL (3.5-10.8)
[2020-11-21 06:38] LABS: EGFR Non-African American 110.6 (>60); Potassium 3.9 mmol/L (3.5-5.0)
[2020-11-21 06:39] LABS: Albumin/Globulin Ratio 0.8 (1-3); Calcium 9.4 mg/dL (8.6-10.3); EGFR African American 133.8 (>60)
[2020-11-21] MEDS: Enoxaparin 40 MG/0.4 ML SYR SUBCUT SCH (09:44)
[2020-11-21] MEDS: LINACLOTIDE 72 MCG PO SCH (09:45)
[2020-11-21] MEDS: Sulfamethox/Trimethoprim DS TAB 800/160 mg PO SCH (09:45)
[2020-11-21] MEDS: Vitamin THERAPEUTIC TAB PO SCH (09:46)
[2020-11-21] MEDS: Polyethylene Glycol 3350 17 GM PACKET PO SCH ×2 (09:51)
[2020-11-21 15:20] VITALS: BP 118/46
[2020-11-22] MEDS ORDERED: Vancomycin Trough Check NOTE FOLLOW UP ONE (11:30)
== END 2020-11-21 16:36 | disposition home or self-care (01) | DRG 442 ==
LOC: ED 21:15 → MEDTELE 11-17 01:02 → MED 11-19 12:12
PROVIDERS: ADMIT Internal Medicine; ATTEND Internal Medicine

== ENCOUNTER 2020-12-14 19:21 | Inpatient (IN) ==
[2020-12-14] MEDS ORDERED: Lactated Ringers 500 ml BAG 500 ML IV ONE (19:58)
[2020-12-14] MEDS ORDERED: Droperidol 5 MG/2 ML 2 ML VIAL IV ONE (19:58)
[2020-12-14 20:22] LABS: ABS Lymphocytes 1.2 10^3/ul (1.0-4.8); ABS Monocytes 0.6 10^3/ul (0-0.8); ABS Neutrophils 3.6 10^3/ul (1.5-7.7); Eosinophil % 0.4 %; Hematocrit 40 % (35-47); Lymphocyte % 22.1 %; Mean Corpuscular HGB Conc 35 g/dL (31-36); Mean Corpuscular Hemoglobin 38 pg (27-31); Mean Corpuscular Volume 107 fL (80-97); Mean Platelet Volume 7.1 fL (7.4-10.4); Nucleated Red Blood Cells % 0.1; Platelet Count 224 10^3/uL (150-450); Red Blood Count 3.74 10^6 /uL (3.70-4.87); Red Cell Distribution Width 16 % (10-15); White Blood Count 5.4 10^3/uL (3.5-10.8)
[2020-12-14 20:35] LABS: Albumin/Globulin Ratio 0.7 (1-3); EGFR African American 37.7 (>60); EGFR Non-African American 31.1 (>60); Globulin 5.4 g/dL (2-4); Magnesium 2.4 mg/dL (1.9-2.7); Total Bilirubin 1.7 mg/dL (0.2-1.0); Total Protein 9.4 g/dL (6.4-8.9)
[2020-12-14 20:36] LABS: Potassium 5.6 mmol/L (3.5-5.0)
[2020-12-14] MEDS ORDERED: Al Hydrox/Mg Hydrox/Simet LIQ 30 ML UDC PO PRN (23:03)
[2020-12-14] MEDS ORDERED: NS 0.9% 1000 ml BAG 1,000 ML IV SCH (23:15)
[2020-12-14] MEDS ORDERED: Lactulose 30 ml UDC ONE (23:39)
[2020-12-14 23:43] LABS: INR 1.23 (0.82-1.09)
[2020-12-15] MEDS: Lactulose 300 ML for PR 200 GM/300 ML BTL PR SCH ×6 (01:19→22:46)
[2020-12-15] MEDS: Heparin 5000 UNITS/ML 1 mL VIAL SUBCUT SCH ×3 (06:33→22:41)
[2020-12-15] MEDS: Lactulose 30 ml UDC PO SCH ×3 (09:00→22:45)
[2020-12-15] MEDS: Sulfamethox/Trimethoprim DS TAB 800/160 mg PO SCH (09:00)
[2020-12-15] MEDS ORDERED: Polyethylene Glycol 3350 17 GM PACKET PO SCH (09:00)
[2020-12-15 09:24] LABS: ABS Lymphocytes 1.3 10^3/ul (1.0-4.8); ABS Monocytes 0.5 10^3/ul (0-0.8); Eosinophil % 0.8 %; Hematocrit 36 % (35-47); Hemoglobin 12.3 g/dL (12.0-16.0); Lymphocyte % 27.5 %; Mean Corpuscular HGB Conc 34 g/dL (31-36); Mean Corpuscular Hemoglobin 37 pg (27-31); Mean Corpuscular Volume 107 fL (80-97); Nucleated Red Blood Cells % 0.2; Platelet Count 188 10^3/uL (150-450); Red Blood Count 3.36 10^6 /uL (3.70-4.87); Red Cell Distribution Width 16 % (10-15); White Blood Count 4.9 10^3/uL (3.5-10.8)
[2020-12-15 09:40] LABS: Albumin 3.5 g/dL (3.2-5.2); Albumin/Globulin Ratio 0.8 (1-3); Calcium 10.8 mg/dL (8.6-10.3); EGFR Non-African American 41.3 (>60); Globulin 4.6 g/dL (2-4); Potassium 4.6 mmol/L (3.5-5.0); Total Bilirubin 2.1 mg/dL (0.2-1.0); Total Protein 8.1 g/dL (6.4-8.9)
[2020-12-15] MEDS: Polyethylene Glycol 3350 17 GM PACKET PO SCH (22:46)
[2020-12-16] MEDS: Heparin 5000 UNITS/ML 1 mL VIAL SUBCUT SCH ×3 (05:34→22:29)
[2020-12-16 06:41] LABS: ABS Eosinophils 0.1 10^3/ul (0-0.6); ABS Lymphocytes 1.2 10^3/ul (1.0-4.8); ABS Monocytes 0.6 10^3/ul (0-0.8); ABS Neutrophils 3.7 10^3/ul (1.5-7.7); Eosinophil % 1.2 %; Hematocrit 33 % (35-47); Hemoglobin 11.4 g/dL (12.0-16.0); Lymphocyte % 21.2 %; Mean Corpuscular HGB Conc 35 g/dL (31-36); Mean Corpuscular Hemoglobin 37 pg (27-31); Mean Corpuscular Volume 106 fL (80-97); Mean Platelet Volume 7.5 fL (7.4-10.4); Nucleated Red Blood Cells % 0.1; Platelet Count 157 10^3/uL (150-450); Red Blood Count 3.07 10^6 /uL (3.70-4.87); Red Cell Distribution Width 16 % (10-15); White Blood Count 5.6 10^3/uL (3.5-10.8)
[2020-12-16 06:44] LABS: EGFR African American 63.4 (>60); EGFR Non-African American 52.4 (>60); Potassium 3.9 mmol/L (3.5-5.0)
[2020-12-16] MEDS: Polyethylene Glycol 3350 17 GM PACKET PO SCH ×2 (10:57→22:29)
[2020-12-16] MEDS: Sulfamethox/Trimethoprim DS TAB 800/160 mg PO SCH (10:57)
[2020-12-16] MEDS: Lactulose 300 ML for PR 200 GM/300 ML BTL PR SCH ×4 (10:58→22:44)
[2020-12-16 11:28] LABS: Vitamin D Total 25(OH) 41.5 ng/mL (20-50)
[2020-12-16] MEDS: Lactulose 30 ml UDC PO SCH (11:54)
[2020-12-17] MEDS: Heparin 5000 UNITS/ML 1 mL VIAL SUBCUT SCH ×3 (05:29→21:28)
[2020-12-17 05:36] LABS: ABS Basophils 0.1 10^3/ul (0-0.2); ABS Eosinophils 0.1 10^3/ul (0-0.6); ABS Lymphocytes 1.6 10^3/ul (1.0-4.8); ABS Monocytes 0.6 10^3/ul (0-0.8); ABS Neutrophils 2.8 10^3/ul (1.5-7.7); Eosinophil % 2.4 %; Hematocrit 33 % (35-47); Hemoglobin 11.2 g/dL (12.0-16.0); Lymphocyte % 29.9 %; Mean Corpuscular HGB Conc 34 g/dL (31-36); Mean Corpuscular Hemoglobin 37 pg (27-31); Mean Corpuscular Volume 108 fL (80-97); Mean Platelet Volume 7.5 fL (7.4-10.4); Nucleated Red Blood Cells % 0.1; Platelet Count 148 10^3/uL (150-450); Red Blood Count 3.03 10^6 /uL (3.70-4.87); Red Cell Distribution Width 16 % (10-15); White Blood Count 5.2 10^3/uL (3.5-10.8)
[2020-12-17 05:52] LABS: Calcium 10.4 mg/dL (8.6-10.3); EGFR African American 83.2 (>60); EGFR Non-African American 68.8 (>60); Potassium 4.3 mmol/L (3.5-5.0)
[2020-12-17] MEDS: Polyethylene Glycol 3350 17 GM PACKET PO SCH ×2 (07:52→21:29)
[2020-12-17] MEDS: Sulfamethox/Trimethoprim DS TAB 800/160 mg PO SCH (07:52)
[2020-12-17] MEDS: Lactulose 300 ML for PR 200 GM/300 ML BTL PR SCH ×5 (08:03→23:04)
[2020-12-17] MEDS ORDERED: LINACLOTIDE 145 MG PO SCH (11:00)
[2020-12-17] MEDS: Lactulose 30 ml UDC PO SCH ×3 (12:23→21:30)
[2020-12-17] MEDS: LINACLOTIDE 72 MCG PO SCH ×3 (15:04→15:52)
[2020-12-18] MEDS: Heparin 5000 UNITS/ML 1 mL VIAL SUBCUT SCH ×3 (05:37→21:58)
[2020-12-18 06:47] LABS: Calcium 10.6 mg/dL (8.6-10.3); EGFR African American 86.8 (>60); EGFR Non-African American 71.8 (>60); Potassium 3.9 mmol/L (3.5-5.0)
[2020-12-18 07:46] LABS: Hematocrit 34 % (35-47); Hemoglobin 11.7 g/dL (12.0-16.0); Mean Corpuscular HGB Conc 35 g/dL (31-36); Mean Corpuscular Hemoglobin 37 pg (27-31); Mean Corpuscular Volume 108 fL (80-97); Mean Platelet Volume 7.6 fL (7.4-10.4); Platelet Count 140 10^3/uL (150-450); Red Blood Count 3.15 10^6 /uL (3.70-4.87); Red Cell Distribution Width 16 % (10-15); White Blood Count 4.7 10^3/uL (3.5-10.8)
[2020-12-18] MEDS: Lactulose 30 ml UDC PO SCH ×4 (09:07→21:54)
[2020-12-18] MEDS: Polyethylene Glycol 3350 17 GM PACKET PO SCH ×2 (09:07→21:51)
[2020-12-18] MEDS: Sulfamethox/Trimethoprim DS TAB 800/160 mg PO SCH (09:08)
[2020-12-18] MEDS: LINACLOTIDE 72 MCG PO SCH (09:17)
[2020-12-18] MEDS: Lactulose 300 ML for PR 200 GM/300 ML BTL PR SCH ×4 (10:20→21:58)
[2020-12-18] MEDS ORDERED: Lubiprostone 24 MCG CAP (NF) PO SCH (21:00)
[2020-12-18] MEDS: CMCS: Lubiprostone 24 MCG CAP (NF) PO SCH (21:57)
[2020-12-19] MEDS: Heparin 5000 UNITS/ML 1 mL VIAL SUBCUT SCH ×3 (05:55→21:32)
[2020-12-19 07:06] LABS: ABS Lymphocytes 1.1 10^3/ul (1.0-4.8); ABS Monocytes 0.4 10^3/ul (0-0.8); ABS Neutrophils 5.8 10^3/ul (1.5-7.7); Hematocrit 36 % (35-47); Hemoglobin 12.3 g/dL (12.0-16.0); Lymphocyte % 14.6 %; Mean Corpuscular HGB Conc 35 g/dL (31-36); Mean Corpuscular Hemoglobin 37 pg (27-31); Mean Corpuscular Volume 108 fL (80-97); Mean Platelet Volume 7.5 fL (7.4-10.4); Platelet Count 154 10^3/uL (150-450); Red Blood Count 3.31 10^6 /uL (3.70-4.87); Red Cell Distribution Width 16 % (10-15); White Blood Count 7.3 10^3/uL (3.5-10.8)
[2020-12-19 07:19] LABS: Calcium 11.5 mg/dL (8.6-10.3); EGFR African American 83.2 (>60); EGFR Non-African American 68.8 (>60); Potassium 3.6 mmol/L (3.5-5.0)
[2020-12-19] MEDS ORDERED: CMCS: Lubiprostone 24 MCG CAP (NF) PO SCH (09:00)
[2020-12-19] MEDS: Sulfamethox/Trimethoprim DS TAB 800/160 mg PO SCH (09:37)
[2020-12-19] MEDS: Polyethylene Glycol 3350 17 GM PACKET PO SCH ×3 (09:37→21:42)
[2020-12-19] MEDS: Lactulose 30 ml UDC PO SCH ×8 (09:37→21:32)
[2020-12-19] MEDS: LINACLOTIDE 72 MCG PO SCH (09:38)
[2020-12-19] MEDS: CMCS: Lubiprostone 24 MCG CAP (NF) PO SCH ×3 (09:38→21:42)
[2020-12-19] MEDS: Lactulose 300 ML for PR 200 GM/300 ML BTL PR SCH ×4 (10:16→21:33)
[2020-12-19 13:51] LABS: Troponin I 0.04 ng/mL (<0.03)
[2020-12-19 16:51] LABS: Troponin I 0.04 ng/mL (<0.03)
[2020-12-19] MEDS ORDERED: D5W 500 ml BAG 500 ML IV SCH (18:00)
[2020-12-19 20:21] LABS: Troponin I 0.03 ng/mL (<0.03)
[2020-12-20] MEDS: Lactulose 30 ml UDC PO SCH ×13 (00:23→23:00)
[2020-12-20 04:41] LABS: ABS Eosinophils 0.1 10^3/ul (0-0.6); ABS Lymphocytes 2.2 10^3/ul (1.0-4.8); ABS Monocytes 0.6 10^3/ul (0-0.8); ABS Neutrophils 4.1 10^3/ul (1.5-7.7); Eosinophil % 1.5 %; Hematocrit 32 % (35-47); Hemoglobin 11.2 g/dL (12.0-16.0); Lymphocyte % 31.8 %; Mean Corpuscular HGB Conc 35 g/dL (31-36); Mean Corpuscular Hemoglobin 37 pg (27-31); Mean Corpuscular Volume 108 fL (80-97); Mean Platelet Volume 7.2 fL (7.4-10.4); Platelet Count 138 10^3/uL (150-450); Red Cell Distribution Width 16 % (10-15)
[2020-12-20 04:55] LABS: Albumin 2.7 g/dL (3.2-5.2); Albumin/Globulin Ratio 0.7 (1-3); Calcium 11.1 mg/dL (8.6-10.3); EGFR African American 77.8 (>60); EGFR Non-African American 64.3 (>60); Globulin 3.9 g/dL (2-4); Total Bilirubin 1.5 mg/dL (0.2-1.0); Total Protein 6.6 g/dL (6.4-8.9)
[2020-12-20] MEDS: Heparin 5000 UNITS/ML 1 mL VIAL SUBCUT SCH ×3 (05:56→21:15)
[2020-12-20] MEDS: CMCS: Lubiprostone 24 MCG CAP (NF) PO SCH ×2 (08:43→21:16)
[2020-12-20] MEDS: LINACLOTIDE 72 MCG PO SCH (08:43)
[2020-12-20] MEDS: Polyethylene Glycol 3350 17 GM PACKET PO SCH ×2 (08:45→21:16)
[2020-12-20] MEDS: Sulfamethox/Trimethoprim DS TAB 800/160 mg PO SCH (08:45)
[2020-12-20] MEDS: Lactulose 300 ML for PR 200 GM/300 ML BTL PR SCH ×4 (10:23→21:17)
[2020-12-20 14:08] LABS: Phosphorus 1.7 mg/dL (2.5-5.0)
[2020-12-20] MEDS ORDERED: TPN 24 HR with D10W 1000 ml BAG 1,000 ML, Amino Acid Infusion 10% 850 ML, Sterile Water... IV SCH (17:00)
[2020-12-21] MEDS: Lactulose 30 ml UDC PO SCH ×10 (00:59→22:53)
[2020-12-21] MEDS: Heparin 5000 UNITS/ML 1 mL VIAL SUBCUT SCH ×3 (05:07→22:21)
[2020-12-21 06:51] LABS: ABS Eosinophils 0.1 10^3/ul (0-0.6); ABS Monocytes 0.8 10^3/ul (0-0.8); ABS Neutrophils 6.4 10^3/ul (1.5-7.7); Eosinophil % 1.1 %; Hematocrit 32 % (35-47); Hemoglobin 11.3 g/dL (12.0-16.0); Lymphocyte % 21.8 %; Mean Corpuscular HGB Conc 35 g/dL (31-36); Mean Corpuscular Hemoglobin 38 pg (27-31); Mean Corpuscular Volume 109 fL (80-97); Mean Platelet Volume 7.3 fL (7.4-10.4); Nucleated Red Blood Cells % 0.2; Platelet Count 131 10^3/uL (150-450); Red Blood Count 2.97 10^6 /uL (3.70-4.87); Red Cell Distribution Width 17 % (10-15); White Blood Count 9.4 10^3/uL (3.5-10.8)
[2020-12-21 07:07] LABS: Albumin 2.7 g/dL (3.2-5.2); Calcium 11.1 mg/dL (8.6-10.3); Magnesium 1.8 mg/dL (1.9-2.7); Potassium 4.3 mmol/L (3.5-5.0); Total Bilirubin 0.9 mg/dL (0.2-1.0)
[2020-12-21 07:13] LABS: Albumin/Globulin Ratio 0.7 (1-3); EGFR African American 90.8 (>60); Globulin 3.9 g/dL (2-4); Phosphorus 1.5 mg/dL (2.5-5.0); Total Protein 6.6 g/dL (6.4-8.9)
[2020-12-21] MEDS ORDERED: Sodium Phosphate IV 15 MMOLE in NS 0.9% 250 ml 250 ML IVPB ONE (08:00)
[2020-12-21] MEDS: Sulfamethox/Trimethoprim DS TAB 800/160 mg PO SCH (08:12)
[2020-12-21] MEDS: LINACLOTIDE 72 MCG PO SCH (08:13)
[2020-12-21] MEDS: CMCS: Lubiprostone 24 MCG CAP (NF) PO SCH ×2 (08:14→20:57)
[2020-12-21] MEDS: Polyethylene Glycol 3350 17 GM PACKET PO SCH ×2 (08:14→21:07)
[2020-12-21] MEDS: Lactulose 300 ML for PR 200 GM/300 ML BTL PR SCH ×4 (10:50→21:17)
[2020-12-21] MEDS ORDERED: TPN 24 HR with D10W 1000 ml BAG 1,000 ML, Amino Acid Infusion 10% 850 ML, Sterile Water... IV SCH (17:00)
[2020-12-22] MEDS ORDERED: Lactated Ringers 500 ml BAG 500 ML IV SCH (01:00)
[2020-12-22] MEDS: Lactulose 30 ml UDC PO SCH ×12 (01:10→23:29)
[2020-12-22 04:01] LABS: ABS Eosinophils 0.1 10^3/ul (0-0.6); ABS Lymphocytes 0.9 10^3/ul (1.0-4.8); ABS Monocytes 0.7 10^3/ul (0-0.8); ABS Neutrophils 4.8 10^3/ul (1.5-7.7); Eosinophil % 1.1 %; Hematocrit 35 % (35-47); Hemoglobin 11.8 g/dL (12.0-16.0); Lymphocyte % 14.2 %; Mean Corpuscular HGB Conc 34 g/dL (31-36); Mean Corpuscular Hemoglobin 37 pg (27-31); Mean Corpuscular Volume 110 fL (80-97); Mean Platelet Volume 7.7 fL (7.4-10.4); Nucleated Red Blood Cells % 0.1; Platelet Count 139 10^3/uL (150-450); Red Blood Count 3.18 10^6 /uL (3.70-4.87); Red Cell Distribution Width 17 % (10-15); White Blood Count 6.6 10^3/uL (3.5-10.8)
[2020-12-22 04:02] LABS: Albumin/Globulin Ratio 0.7 (1-3); Calcium 10.7 mg/dL (8.6-10.3); EGFR African American 84.4 (>60); EGFR Non-African American 69.7 (>60); Globulin 4.3 g/dL (2-4); Magnesium 2.1 mg/dL (1.9-2.7); Phosphorus 2.3 mg/dL (2.5-5.0); Potassium 3.5 mmol/L (3.5-5.0); Total Bilirubin 0.8 mg/dL (0.2-1.0); Total Protein 7.3 g/dL (6.4-8.9)
[2020-12-22] MEDS: Heparin 5000 UNITS/ML 1 mL VIAL SUBCUT SCH ×3 (05:59→22:03)
[2020-12-22] MEDS: Polyethylene Glycol 3350 17 GM PACKET PO SCH ×2 (08:37→22:00)
[2020-12-22] MEDS: Sulfamethox/Trimethoprim DS TAB 800/160 mg PO SCH ×2 (08:41→11:19)
[2020-12-22] MEDS: CMCS: Lubiprostone 24 MCG CAP (NF) PO SCH ×2 (08:41→22:01)
[2020-12-22] MEDS: Lactulose 300 ML for PR 200 GM/300 ML BTL PR SCH ×4 (11:15→22:05)
[2020-12-22] MEDS: LINACLOTIDE 72 MCG PO SCH (11:15)
[2020-12-22] MEDS: Ondansetron 4 mg VIAL 2 MG/ML 2 ml VIAL IV PRN (12:15)
[2020-12-22] MEDS ORDERED: TPN 24 HR with D10W 1000 ml BAG 1,000 ML, Amino Acid Infusion 10% 850 ML, Sterile Water... IV SCH (17:01)
[2020-12-23] MEDS: Lactulose 30 ml UDC PO SCH ×12 (01:24→23:36)
[2020-12-23 05:31] LABS: Hematocrit 31 % (35-47); Hemoglobin 10.6 g/dL (12.0-16.0); Mean Corpuscular HGB Conc 35 g/dL (31-36); Mean Corpuscular Hemoglobin 38 pg (27-31); Mean Corpuscular Volume 110 fL (80-97); Mean Platelet Volume 7.9 fL (7.4-10.4); Platelet Count 103 10^3/uL (150-450); Red Blood Count 2.77 10^6 /uL (3.70-4.87); Red Cell Distribution Width 17 % (10-15)
[2020-12-23] MEDS: Heparin 5000 UNITS/ML 1 mL VIAL SUBCUT SCH ×3 (05:40→23:35)
[2020-12-23 05:45] LABS: Albumin 2.6 g/dL (3.2-5.2); Albumin/Globulin Ratio 0.7 (1-3); Calcium 9.9 mg/dL (8.6-10.3); EGFR African American 98.1 (>60); Globulin 3.7 g/dL (2-4); Phosphorus 1.1 mg/dL (2.5-5.0); Potassium 4.4 mmol/L (3.5-5.0); Total Bilirubin 0.8 mg/dL (0.2-1.0); Total Protein 6.3 g/dL (6.4-8.9)
[2020-12-23] MEDS ORDERED: Sodium Phosphate IV 20 MMOLE in NS 0.9% 250 ml 250 ML IVPB ONE (08:30)
[2020-12-23] MEDS: Sulfamethox/Trimethoprim DS TAB 800/160 mg PO SCH (10:15)
[2020-12-23] MEDS: Polyethylene Glycol 3350 17 GM PACKET PO SCH ×2 (10:15→21:01)
[2020-12-23] MEDS: LINACLOTIDE 72 MCG PO SCH (10:22)
[2020-12-23] MEDS: CMCS: Lubiprostone 24 MCG CAP (NF) PO SCH ×2 (10:23→21:02)
[2020-12-23] MEDS: Lactulose 300 ML for PR 200 GM/300 ML BTL PR SCH ×4 (11:30→21:20)
[2020-12-23] MEDS ORDERED: TPN Peripheral STANDARD BASE A IV SCH (17:00)
[2020-12-23 17:41] LABS: Urine Appearance Cloudy; Urine Bilirubin Negative (Negative); Urine Blood 1+ (Negative); Urine Color Yellow; Urine Glucose Negative (Negative); Urine Ketones Negative (Negative); Urine Nitrite Positive (Negative); Urine Protein Negative (Negative); Urine Specific Gravity 1.019 (1.002-1.030); Urine Urobilinogen Negative (Negative)
[2020-12-23 17:46] LABS: Urine Bacteria 3+ (Absent); Urine Red Blood Cell Trace(0-2/hpf) (Absent); Urine Squamous Epithelial Cell Present (Absent); Urine White Blood Cell 2+(11-20/hpf) (Absent)
[2020-12-24] MEDS: Lactulose 30 ml UDC PO SCH ×11 (01:17→21:49)
[2020-12-24] MEDS: Heparin 5000 UNITS/ML 1 mL VIAL SUBCUT SCH (05:45)
[2020-12-24 06:23] LABS: ABS Eosinophils 0.1 10^3/ul (0-0.6); ABS Lymphocytes 1.4 10^3/ul (1.0-4.8); ABS Monocytes 0.8 10^3/ul (0-0.8); ABS Neutrophils 4.4 10^3/ul (1.5-7.7); Eosinophil % 1.2 %; Hematocrit 27 % (35-47); Hemoglobin 9.4 g/dL (12.0-16.0); Lymphocyte % 20.6 %; Mean Corpuscular HGB Conc 34 g/dL (31-36); Mean Corpuscular Hemoglobin 38 pg (27-31); Mean Corpuscular Volume 110 fL (80-97); Mean Platelet Volume 8.3 fL (7.4-10.4); Nucleated Red Blood Cells % 0.2; Platelet Count 97 10^3/uL (150-450); Red Cell Distribution Width 17 % (10-15); White Blood Count 6.6 10^3/uL (3.5-10.8)
[2020-12-24 06:36] LABS: INR 1.77 (0.82-1.09)
[2020-12-24 06:45] LABS: Calcium 9.2 mg/dL (8.6-10.3); EGFR African American 101.3 (>60); EGFR Non-African American 83.7 (>60)
[2020-12-24] MEDS: SODIUM ZIRCONIUM CYCLOSILICATE 10 GM PACKET PO ONE ×2 (07:36→07:56)
[2020-12-24] MEDS ORDERED: D5LR 1000 ml BAG 1,000 ML IV SCH ×3 (08:00→19:00)
[2020-12-24 08:44] LABS: Blood Urea Nitrogen 48 mg/dL (6-24); CO2 Carbon Dioxide 21 mmol/L (22-32); Calcium 9.2 mg/dL (8.6-10.3); EGFR African American 93.5 (>60); EGFR Non-African American 77.3 (>60); Glucose 97 mg/dL (70-100); Sodium 132 mmol/L (135-145)
[2020-12-24 08:53] LABS: Chloride 113 mmol/L (101-111); Potassium 6.3 mmol/L (3.5-5.0)
[2020-12-24] MEDS ORDERED: Dextrose 50% Syringe 50 ml 25 GM/50 ML SYRINGE IV PUSH ONE ×3 (08:58→18:48)
[2020-12-24 09:14] LABS: Albumin 2.5 g/dL (3.2-5.2); Albumin/Globulin Ratio 0.7 (1-3); Globulin 3.6 g/dL (2-4); Indirect Bilirubin 0.7 mg/dL (0.3-1.0); Total Protein 6.1 g/dL (6.4-8.9)
[2020-12-24] MEDS: Polyethylene Glycol 3350 17 GM PACKET PO SCH ×2 (09:38→21:46)
[2020-12-24] MEDS: CMCS: Lubiprostone 24 MCG CAP (NF) PO SCH ×2 (10:07→21:52)
[2020-12-24] MEDS: Sulfamethox/Trimethoprim DS TAB 800/160 mg PO SCH (10:09)
[2020-12-24] MEDS: LINACLOTIDE 72 MCG PO SCH (10:12)
[2020-12-24] MEDS: Lactulose 300 ML for PR 200 GM/300 ML BTL PR SCH ×5 (10:13→22:55)
[2020-12-24 12:35] LABS: Blood Urea Nitrogen 45 mg/dL (6-24); CO2 Carbon Dioxide 21 mmol/L (22-32); Calcium 9.4 mg/dL (8.6-10.3); EGFR Non-African American 85.1 (>60); Glucose 69 mg/dL (70-100); Sodium 134 mmol/L (135-145)
[2020-12-24 13:04] LABS: Chloride 114 mmol/L (101-111); Potassium 5.6 mmol/L (3.5-5.0)
[2020-12-24] MEDS ORDERED: Dextrose 50% Syringe 50 ml 25 GM/50 ML SYRINGE ONE (13:05)
[2020-12-24] MEDS: Dextrose 50% VIAL 50 ml IV ONE ×2 (13:07→13:13)
[2020-12-24 15:35] LABS: Urine Appearance Cloudy; Urine Bilirubin Negative (Negative); Urine Blood Negative (Negative); Urine Color Yellow; Urine Glucose 2+(150 mg/dL) (Negative); Urine Ketones Negative (Negative); Urine Nitrite Positive (Negative); Urine Protein Negative (Negative); Urine Specific Gravity 1.018 (1.002-1.030); Urine Urobilinogen Negative (Negative)
[2020-12-24 15:46] LABS: Urine Bacteria 3+ (Absent); Urine Red Blood Cell Absent (Absent); Urine White Blood Cell Absent (Absent)
[2020-12-24] MEDS ORDERED: Midazolam 5 mg/5 ml VIAL 1 mg/ml 5 ml VIAL (5 mg) ONE (15:59)
[2020-12-24] MEDS ORDERED: TPN 24 HR with D10W 1000 ml BAG 1,000 ML, Amino Acid Infusion 10% 850 ML, Sterile Water... IV SCH (17:00)
[2020-12-24] MEDS: cefTRIAXone 1 gm/50 mL NS BAG 1 GM/50 ML BAG IVPB SCH (17:26)
[2020-12-24 18:19] LABS: CO2 Carbon Dioxide 21 mmol/L (22-32); Calcium 8.8 mg/dL (8.6-10.3); Sodium 134 mmol/L (135-145)
[2020-12-24 18:20] LABS: Chloride 113 mmol/L (101-111)
[2020-12-24 18:24] LABS: Blood Urea Nitrogen 41 mg/dL (6-24); EGFR African American 108.4 (>60); EGFR Non-African American 89.6 (>60); Glucose 102 mg/dL (70-100); Phosphorus 2.1 mg/dL (2.5-5.0)
[2020-12-24] MEDS ORDERED: Dextrose 50% Syringe 50 ml 25 GM/50 ML SYRINGE IV PUSH PRN (18:47)
[2020-12-24] MEDS ORDERED: Calcium Gluconate 2 GM in NS 0.9% 100 ml BAG 100 ML IV ONE (18:57)
[2020-12-24] MEDS ORDERED: CALCIUM GLUCONATE 1GM/50ML NS 1 GM/50 ML BAG IV ONE (19:13)
[2020-12-24] MEDS ORDERED: Calcium Gluconate 1 GM/10 ML VIAL (in Pyxis) IV PUSH ONE (19:19)
[2020-12-24 19:56] LABS: Creatine Kinase 54 U/L (10-223)
[2020-12-24 23:56] LABS: Troponin I 0.03 ng/mL (<0.03)
[2020-12-25 00:06] LABS: Blood Urea Nitrogen 37 mg/dL (6-24); CO2 Carbon Dioxide 18 mmol/L (22-32); Calcium 10.1 mg/dL (8.6-10.3); EGFR Non-African American 85.1 (>60); Sodium 136 mmol/L (135-145)
[2020-12-25 00:08] LABS: Anion Gap 5 mmol/L (2-11); Chloride 113 mmol/L (101-111)
[2020-12-25 00:09] LABS: Glucose 39 mg/dL (70-100)
[2020-12-25] MEDS ORDERED: D10W 500 ml BAG 500 ML IV SCH (01:00)
[2020-12-25] MEDS: Lactulose 30 ml UDC PO SCH ×12 (01:14→22:08)
[2020-12-25] MEDS ORDERED: D10W 1000 ml BAG 500 ML IV SCH (01:33)
[2020-12-25 01:36] LABS: Urine Appearance Cloudy; Urine Bilirubin Negative (Negative); Urine Blood 1+ (Negative); Urine Color Yellow; Urine Glucose 3+(>=500 mg/dL) (Negative); Urine Ketones Negative (Negative); Urine Nitrite Positive (Negative); Urine Protein Negative (Negative); Urine Specific Gravity 1.017 (1.002-1.030); Urine Urobilinogen Negative (Negative)
[2020-12-25 01:41] LABS: Urine Bacteria 2+ (Absent); Urine Red Blood Cell Trace(0-2/hpf) (Absent); Urine White Blood Cell 2+(11-20/hpf) (Absent)
[2020-12-25] MEDS: D10W 500 ml BAG 500 ML IV SCH ×2 (01:58→08:55)
[2020-12-25 02:48] LABS: Troponin I 0.03 ng/mL (<0.03)
[2020-12-25 06:12] LABS: ALT 179 U/L (7-52); AST 167 U/L (13-39); Albumin 2.3 g/dL (3.2-5.2); Albumin/Globulin Ratio 0.7 (1-3); Alkaline Phosphatase 264 U/L (35-149); Anion Gap 3 mmol/L (2-11); Blood Urea Nitrogen 34 mg/dL (6-24); CO2 Carbon Dioxide 16 mmol/L (22-32); Calcium 8.7 mg/dL (8.6-10.3); Chloride 103 mmol/L (101-111); EGFR African American 93.5 (>60); EGFR Non-African American 77.3 (>60); Globulin 3.4 g/dL (2-4); Phosphorus 2.3 mg/dL (2.5-5.0); Potassium 3.7 mmol/L (3.5-5.0); Sodium 122 mmol/L (135-145); Total Protein 5.7 g/dL (6.4-8.9)
[2020-12-25 06:13] LABS: % Iron Saturation 15 % (15-55); ABS Eosinophils 0.1 10^3/ul (0-0.6); ABS Lymphocytes 0.8 10^3/ul (1.0-4.8); ABS Monocytes 0.7 10^3/ul (0-0.8); ABS Neutrophils 4.8 10^3/ul (1.5-7.7); Eosinophil % 1.4 %; Hematocrit 27 % (35-47); Iron 29 ug/dL (50-212); Lymphocyte % 11.9 %; Mean Corpuscular HGB Conc 33 g/dL (31-36); Mean Corpuscular Hemoglobin 38 pg (27-31); Mean Corpuscular Volume 114 fL (80-97); Mean Platelet Volume 8.6 fL (7.4-10.4); Nucleated Red Blood Cells % 0.2; Platelet Count 84 10^3/uL (150-450); Red Blood Count 2.39 10^6 /uL (3.70-4.87); Red Cell Distribution Width 18 % (10-15); Total Iron Binding Capacity 195 mcg/dL (250-450); Transferrin 139 mg/dL (203-362); Unsaturated Iron Binding < 180 ug/dL; White Blood Count 6.3 10^3/uL (3.5-10.8)
[2020-12-25 06:31] LABS: Glucose 780 mg/dL (70-100); Troponin I 0.03 ng/mL (<0.03)
[2020-12-25 06:32] LABS: Ferritin 121.3 ng/mL (11-307)
[2020-12-25] MEDS: CMCS: Lubiprostone 24 MCG CAP (NF) PO SCH ×3 (08:39→21:43)
[2020-12-25] MEDS: LINACLOTIDE 72 MCG PO SCH (08:39)
[2020-12-25] MEDS: Docusate LIQ 100 MG/10 ML UDC PO SCH ×2 (09:18→22:06)
[2020-12-25] MEDS: Polyethylene Glycol 3350 17 GM PACKET PO SCH ×2 (09:18→22:06)
[2020-12-25] MEDS: Lactulose 300 ML for PR 200 GM/300 ML BTL PR SCH ×4 (09:19→22:06)
[2020-12-25 11:38] LABS: Calcium 9.7 mg/dL (8.6-10.3); EGFR African American 90.8 (>60); Potassium 3.7 mmol/L (3.5-5.0)
[2020-12-25] MEDS: Pantoprazole VIAL 40 MG VIAL IV SCH ×2 (11:40→22:34)
[2020-12-25] MEDS: cefTRIAXone 1 gm/50 mL NS BAG 1 GM/50 ML BAG IVPB SCH (15:16)
[2020-12-25] MEDS ORDERED: TPN CENTRAL STANDARD BASE A CENTR SCH (17:00)
[2020-12-25] MEDS: Ondansetron 4 mg VIAL 2 MG/ML 2 ml VIAL IV PRN (22:35)
[2020-12-25] MEDS: Rifaximin 20 mg/mL Suspension (Pharmacy to Compound) PO SCH (22:45)
[2020-12-25] MEDS ORDERED: Metoprolol Tartrate 5 mg VIAL 5 ml VIAL (1 mg/ml) ONE (23:49)
[2020-12-25] MEDS ORDERED: Metoprolol Tartrate 5 mg VIAL 5 ml VIAL (1 mg/ml) IV ONE (23:49)
[2020-12-26] MEDS: Lactulose 30 ml UDC PO SCH ×8 (00:11→22:59)
[2020-12-26 06:14] LABS: ABS Lymphocytes 0.6 10^3/ul (1.0-4.8); ABS Monocytes 0.8 10^3/ul (0-0.8); Eosinophil % 0.6 %; Hematocrit 28 % (35-47); Hemoglobin 9.9 g/dL (12.0-16.0); Lymphocyte % 7.8 %; Mean Corpuscular HGB Conc 35 g/dL (31-36); Mean Corpuscular Hemoglobin 38 pg (27-31); Mean Corpuscular Volume 109 fL (80-97); Mean Platelet Volume 8.5 fL (7.4-10.4); Platelet Count 93 10^3/uL (150-450); Red Cell Distribution Width 17 % (10-15); White Blood Count 7.5 10^3/uL (3.5-10.8)
[2020-12-26] MEDS: Ondansetron 4 mg VIAL 2 MG/ML 2 ml VIAL IV PRN (06:22)
[2020-12-26 06:42] LABS: Albumin 2.6 g/dL (3.2-5.2); Albumin/Globulin Ratio 0.7 (1-3); Calcium 9.5 mg/dL (8.6-10.3); EGFR Non-African American 85.1 (>60); Globulin 3.6 g/dL (2-4); Total Bilirubin 1.2 mg/dL (0.2-1.0); Total Protein 6.2 g/dL (6.4-8.9)
[2020-12-26 06:44] LABS: Potassium 2.4 mmol/L (3.5-5.0)
[2020-12-26] MEDS ORDERED: Potassium Chloride LIQUID 20 MEQ/15 ML LIQUID PO ONE ×3 (07:50→17:48)
[2020-12-26] MEDS ORDERED: KCL 20 MEQ/100 ML IVPREMIX 20 MEQ/100 ML BAG IV ONE (07:51)
[2020-12-26] MEDS: CMCS: Lubiprostone 24 MCG CAP (NF) PO SCH ×2 (08:42→22:59)
[2020-12-26] MEDS: Docusate LIQ 100 MG/10 ML UDC PO SCH ×2 (08:52→22:59)
[2020-12-26] MEDS: Polyethylene Glycol 3350 17 GM PACKET PO SCH ×2 (08:53→22:59)
[2020-12-26] MEDS: Rifaximin 20 mg/mL Suspension (Pharmacy to Compound) PO SCH ×2 (08:53→23:08)
[2020-12-26] MEDS: Lactulose 300 ML for PR 200 GM/300 ML BTL PR SCH ×2 (11:00→23:44)
[2020-12-26 11:30] LABS: Body Fluid Source Peritonial Fluid
[2020-12-26] MEDS: Pantoprazole VIAL 40 MG VIAL IV SCH (11:49)
[2020-12-26 11:53] LABS: Calcium 9.5 mg/dL (8.6-10.3); EGFR African American 114.4 (>60); EGFR Non-African American 94.5 (>60); Magnesium 2.3 mg/dL (1.9-2.7); Potassium 2.8 mmol/L (3.5-5.0)
[2020-12-26 15:27] LABS: Body Fluid Mono 49 %; Body Fluid Variant Lymph 2 %
[2020-12-26] MEDS: cefTRIAXone 1 gm/50 mL NS BAG 1 GM/50 ML BAG IVPB SCH (15:49)
[2020-12-26 17:15] LABS: Calcium 9.5 mg/dL (8.6-10.3)
[2020-12-26] MEDS: TPN CENTRAL STANDARD BASE A CENTR SCH (17:17)
[2020-12-26] MEDS ORDERED: NS 0.45% 1000 ml BAG 1,000 ML IV SCH (18:00)
[2020-12-26 20:25] LABS: Magnesium 2.3 mg/dL (1.9-2.7)
[2020-12-26] MEDS: KCL 20 MEQ/100 ML IVPREMIX 20 MEQ/100 ML BAG IV SCH ×2 (20:58→23:39)
[2020-12-27] MEDS: Pantoprazole VIAL 40 MG VIAL IV SCH ×3 (00:11→23:24)
[2020-12-27] MEDS: Lactulose 30 ml UDC PO SCH ×6 (04:39→23:45)
[2020-12-27 05:42] LABS: ABS Lymphocytes 0.4 10^3/ul (1.0-4.8); ABS Monocytes 0.8 10^3/ul (0-0.8); Eosinophil % 0.1 %; Hematocrit 27 % (35-47); Lymphocyte % 5.2 %; Mean Corpuscular HGB Conc 34 g/dL (31-36); Mean Corpuscular Hemoglobin 37 pg (27-31); Mean Corpuscular Volume 111 fL (80-97); Mean Platelet Volume 8.4 fL (7.4-10.4); Nucleated Red Blood Cells % 0.1; Platelet Count 81 10^3/uL (150-450); Red Blood Count 2.42 10^6 /uL (3.70-4.87); Red Cell Distribution Width 18 % (10-15); White Blood Count 7.1 10^3/uL (3.5-10.8)
[2020-12-27 05:53] LABS: Albumin 2.1 g/dL (3.2-5.2); Albumin/Globulin Ratio 0.8 (1-3); Calcium 7.4 mg/dL (8.6-10.3); EGFR African American 160.4 (>60); EGFR Non-African American 132.6 (>60); Globulin 2.8 g/dL (2-4); Potassium 3.2 mmol/L (3.5-5.0); Total Bilirubin 1.1 mg/dL (0.2-1.0); Total Protein 4.9 g/dL (6.4-8.9)
[2020-12-27] MEDS ORDERED: Potassium Chloride LIQUID 20 MEQ/15 ML LIQUID PEG TUBE ONE (08:27)
[2020-12-27] MEDS: Docusate LIQ 100 MG/10 ML UDC PO SCH (09:19)
[2020-12-27] MEDS: Rifaximin 20 mg/mL Suspension (Pharmacy to Compound) PO SCH ×2 (09:19→21:17)
[2020-12-27] MEDS: Polyethylene Glycol 3350 17 GM PACKET PO SCH ×2 (09:20→21:17)
[2020-12-27 09:37] LABS: Phosphorus 1.6 mg/dL (2.5-5.0)
[2020-12-27] MEDS: CMCS: Lubiprostone 24 MCG CAP (NF) PO SCH ×2 (09:41→21:18)
[2020-12-27] MEDS: Lactulose 300 ML for PR 200 GM/300 ML BTL PR SCH ×2 (13:32→22:44)
[2020-12-27 13:44] LABS: Lactate Dehydrogenase, BF 58 U/L
[2020-12-27] MEDS: cefTRIAXone 1 gm/50 mL NS BAG 1 GM/50 ML BAG IVPB SCH (15:43)
[2020-12-27] MEDS: Potassium Acid Phos 500 mg TAB NG TUBE SCH ×3 (15:44→21:17)
[2020-12-27] MEDS: TPN CENTRAL STANDARD BASE A CENTR SCH (17:47)
[2020-12-28] MEDS: Lactulose 30 ml UDC PO SCH ×6 (04:14→21:17)
[2020-12-28 06:22] LABS: Magnesium 2.6 mg/dL (1.9-2.7)
[2020-12-28 06:23] LABS: Albumin 2.6 g/dL (3.2-5.2); Albumin/Globulin Ratio 0.7 (1-3); Calcium 9.5 mg/dL (8.6-10.3); EGFR African American 123.4 (>60); Globulin 3.6 g/dL (2-4); Potassium 3.8 mmol/L (3.5-5.0); Total Bilirubin 1.7 mg/dL (0.2-1.0); Total Protein 6.2 g/dL (6.4-8.9)
[2020-12-28] MEDS ORDERED: NS 0.45% 1000 ml BAG 1,000 ML IV SCH (08:00)
[2020-12-28 09:40] LABS: Glucose, BF 120 mg/dL
[2020-12-28 09:42] LABS: Albumin, BF 0.3 g/dL
[2020-12-28 10:25] LABS: HIT ELISA 0.282 OD (<0.400)
[2020-12-28] MEDS: Lactulose 300 ML for PR 200 GM/300 ML BTL PR SCH ×2 (10:30→21:17)
[2020-12-28] MEDS: Polyethylene Glycol 3350 17 GM PACKET PO SCH ×2 (11:39→21:41)
[2020-12-28] MEDS: Pantoprazole VIAL 40 MG VIAL IV SCH ×2 (11:40→21:31)
[2020-12-28] MEDS: CMCS: Lubiprostone 24 MCG CAP (NF) PO SCH ×2 (11:41→21:33)
[2020-12-28 11:53] LABS: ABS Eosinophils 0.2 10^3/ul (0-0.6); Eosinophil % 2.1 %; Hematocrit 31 % (35-47); Hemoglobin 10.1 g/dL (12.0-16.0); Lymphocyte % 13.8 %; Mean Corpuscular HGB Conc 33 g/dL (31-36); Mean Corpuscular Hemoglobin 37 pg (27-31); Mean Corpuscular Volume 112 fL (80-97); Mean Platelet Volume 8.4 fL (7.4-10.4); Nucleated Red Blood Cells % 0.3; Platelet Count 83 10^3/uL (150-450); Red Blood Count 2.73 10^6 /uL (3.70-4.87); Red Cell Distribution Width 18 % (10-15); White Blood Count 7.3 10^3/uL (3.5-10.8)
[2020-12-28] MEDS: Rifaximin 20 mg/mL Suspension (Pharmacy to Compound) PO SCH ×2 (11:53→21:36)
[2020-12-28 12:01] LABS: Calcium 9.6 mg/dL (8.6-10.3); EGFR African American 112.3 (>60); EGFR Non-African American 92.8 (>60); Potassium 3.8 mmol/L (3.5-5.0)
[2020-12-28] MEDS: Enoxaparin 30 MG/0.3 ML SYR SUBCUT SCH (12:44)
[2020-12-28] MEDS ORDERED: fentaNYL 100 mcg/2 ml 50 MCG/ML VIAL IV SLOW PU PRN (14:16)
[2020-12-28] MEDS: cefTRIAXone 1 gm/50 mL NS BAG 1 GM/50 ML BAG IVPB SCH (15:18)
[2020-12-28] MEDS ORDERED: TPN 24 HR with Dextrose 50% Water 500 ML, Amino Acid Infusion 10% 850 ML, Sterile Water... CENTR SCH ×2 (17:00)
[2020-12-29] MEDS: Lactulose 30 ml UDC PO SCH ×6 (00:12→21:24)
[2020-12-29 06:09] LABS: ABS Monocytes 1.2 10^3/ul (0-0.8); ABS Neutrophils 5.9 10^3/ul (1.5-7.7); Eosinophil % 0.1 %; Hematocrit 28 % (35-47); Hemoglobin 9.4 g/dL (12.0-16.0); Lymphocyte % 12.7 %; Mean Corpuscular HGB Conc 34 g/dL (31-36); Mean Corpuscular Hemoglobin 38 pg (27-31); Mean Corpuscular Volume 112 fL (80-97); Mean Platelet Volume 8.6 fL (7.4-10.4); Nucleated Red Blood Cells % 0.2; Platelet Count 72 10^3/uL (150-450); Red Blood Count 2.49 10^6 /uL (3.70-4.87); Red Cell Distribution Width 19 % (10-15); White Blood Count 8.1 10^3/uL (3.5-10.8)
[2020-12-29 06:16] LABS: Albumin 2.5 g/dL (3.2-5.2); Albumin/Globulin Ratio 0.7 (1-3); Calcium 9.4 mg/dL (8.6-10.3); EGFR African American 139.7 (>60); EGFR Non-African American 115.4 (>60); Globulin 3.5 g/dL (2-4); Phosphorus 2.4 mg/dL (2.5-5.0); Potassium 4.1 mmol/L (3.5-5.0); Total Bilirubin 1.8 mg/dL (0.2-1.0)
[2020-12-29] MEDS ORDERED: Potassium Phosphate IV 15 MMOLE in NS 0.9% 250 ml 250 ML IVPB ONE (09:00)
[2020-12-29] MEDS: Polyethylene Glycol 3350 17 GM PACKET PO SCH ×2 (09:10→21:25)
[2020-12-29] MEDS: Pantoprazole VIAL 40 MG VIAL IV SCH ×2 (09:10→23:01)
[2020-12-29] MEDS: CMCS: Lubiprostone 24 MCG CAP (NF) PO SCH ×2 (09:12→21:24)
[2020-12-29] MEDS: Rifaximin 20 mg/mL Suspension (Pharmacy to Compound) PO SCH ×3 (09:12→21:25)
[2020-12-29] MEDS: Lactulose 300 ML for PR 200 GM/300 ML BTL PR SCH ×2 (10:34→21:24)
[2020-12-29] MEDS: Enoxaparin 30 MG/0.3 ML SYR SUBCUT SCH (13:50)
[2020-12-29] MEDS ORDERED: TPN 24 HR with Dextrose 50% Water 500 ML, Amino Acid Infusion 10% 850 ML, Sterile Water... CENTR SCH (17:00)
[2020-12-30] MEDS: Lactulose 30 ml UDC PO SCH ×4 (05:30→21:52)
[2020-12-30] MEDS: Polyethylene Glycol 3350 17 GM PACKET PO SCH ×2 (08:52→21:58)
[2020-12-30] MEDS: CMCS: Lubiprostone 24 MCG CAP (NF) PO SCH ×3 (08:55→22:01)
[2020-12-30] MEDS: Rifaximin 20 mg/mL Suspension (Pharmacy to Compound) PO SCH ×2 (08:55→21:59)
[2020-12-30] MEDS: Lactulose 300 ML for PR 200 GM/300 ML BTL PR SCH (09:16)
[2020-12-30] MEDS: Pantoprazole VIAL 40 MG VIAL IV SCH (10:42)
[2020-12-30 11:19] LABS: Hematocrit 30 % (35-47); Hemoglobin 9.7 g/dL (12.0-16.0); Mean Corpuscular HGB Conc 33 g/dL (31-36); Mean Corpuscular Hemoglobin 38 pg (27-31); Mean Corpuscular Volume 114 fL (80-97); Mean Platelet Volume 9.3 fL (7.4-10.4); Platelet Count 78 10^3/uL (150-450); Red Blood Count 2.59 10^6 /uL (3.70-4.87); Red Cell Distribution Width 19 % (10-15)
[2020-12-30 11:45] LABS: Albumin 2.5 g/dL (3.2-5.2); CO2 Carbon Dioxide 23 mmol/L (22-32); Calcium 9.7 mg/dL (8.6-10.3); Magnesium 2.5 mg/dL (1.9-2.7); Potassium 3.9 mmol/L (3.5-5.0)
[2020-12-30 11:51] LABS: Blood Urea Nitrogen 56 mg/dL (6-24); EGFR Non-African American 108.3 (>60); Glucose 117 mg/dL (70-100)
[2020-12-30 11:52] LABS: ALT 247 U/L (7-52); AST 237 U/L (13-39); Albumin/Globulin Ratio 0.7 (1-3); Alkaline Phosphatase 290 U/L (35-149); Cholesterol 98 mg/dL; EGFR African American 131.1 (>60); Globulin 3.5 g/dL (2-4); Phosphorus 2.7 mg/dL (2.5-5.0); Triglycerides 38 mg/dL
[2020-12-30 11:55] LABS: Chloride 125 mmol/L (101-111); Sodium 148 mmol/L (135-145)
[2020-12-30 12:23] LABS: Prealbumin 8 mg/dL (18-38)
[2020-12-30] MEDS: Enoxaparin 30 MG/0.3 ML SYR SUBCUT SCH (13:08)
[2020-12-30] MEDS ORDERED: Lactulose 300 ML for PR 200 GM/300 ML BTL PR PRN (16:55)
[2020-12-30] MEDS ORDERED: Morphine 2 MG/ML SYRINGE IV PRN (16:58)
[2020-12-30] MEDS ORDERED: LORazepam 2 mg VIAL 1 ml IV PUSH ONE (19:13)
[2020-12-30] MEDS ORDERED: Lorazepam PYXIS KEY PRN (19:21)
[2020-12-31] MEDS: Lactulose 30 ml UDC PO SCH ×4 (02:44→21:51)
[2020-12-31] MEDS: Polyethylene Glycol 3350 17 GM PACKET PO SCH ×2 (08:50→21:51)
[2020-12-31] MEDS: Rifaximin 20 mg/mL Suspension (Pharmacy to Compound) PO SCH ×3 (08:56→21:51)
[2020-12-31] MEDS: CMCS: Lubiprostone 24 MCG CAP (NF) PO SCH ×3 (08:56→21:51)
[2020-12-31 11:02] LABS: INR 1.23 (0.82-1.09)
[2020-12-31] MEDS ORDERED: ceFAZolin 1 GM ADVAN 1 GM ADDV.VIAL IVPB ONE (14:59)
[2020-12-31] MEDS ORDERED: Midazolam 2 mg/2 ml VIAL 1 mg/ml 2 ml VIAL (2 mg) ONE (15:00)
[2020-12-31] MEDS ORDERED: fentaNYL 100 mcg/2 ml 50 MCG/ML VIAL ONE (15:00)
[2021-01-01] MEDS: Lactulose 30 ml UDC PO SCH ×4 (01:45→20:47)
[2021-01-01] MEDS: Polyethylene Glycol 3350 17 GM PACKET PO SCH ×2 (08:36→20:47)
[2021-01-01] MEDS: CMCS: Lubiprostone 24 MCG CAP (NF) PO SCH ×2 (08:36→20:47)
[2021-01-01] MEDS: Rifaximin 20 mg/mL Suspension (Pharmacy to Compound) PO SCH ×2 (08:37→20:48)
[2021-01-02] MEDS: Lactulose 30 ml UDC PO SCH ×4 (01:59→20:46)
[2021-01-02] MEDS: CMCS: Lubiprostone 24 MCG CAP (NF) PO SCH ×2 (08:31→20:47)
[2021-01-02] MEDS: Rifaximin 20 mg/mL Suspension (Pharmacy to Compound) PO SCH ×2 (08:31→20:47)
[2021-01-02] MEDS: Polyethylene Glycol 3350 17 GM PACKET PO SCH ×2 (08:31→20:47)
[2021-01-02] MEDS: Morphine 2 MG/ML SYRINGE IV PRN (19:52)
[2021-01-02] MEDS ORDERED: Lorazepam PYXIS KEY PRN (21:31)
[2021-01-03] MEDS: Lactulose 30 ml UDC PO SCH ×4 (02:08→22:54)
[2021-01-03] MEDS: Polyethylene Glycol 3350 17 GM PACKET PO SCH ×2 (08:50→22:54)
[2021-01-03] MEDS: CMCS: Lubiprostone 24 MCG CAP (NF) PO SCH ×2 (08:50→22:54)
[2021-01-03] MEDS: Rifaximin 20 mg/mL Suspension (Pharmacy to Compound) PO SCH ×2 (08:50→22:54)
[2021-01-03] MEDS: Morphine 2 MG/ML SYRINGE IV PRN ×2 (11:49→17:02)
[2021-01-04] MEDS: Lactulose 30 ml UDC PO SCH ×4 (00:25→23:57)
[2021-01-04] MEDS: LORazepam 2 mg VIAL 1 ml IV PUSH PRN ×2 (03:11→10:53)
[2021-01-04] MEDS: CMCS: Lubiprostone 24 MCG CAP (NF) PO SCH ×2 (07:49→23:57)
[2021-01-04] MEDS: Polyethylene Glycol 3350 17 GM PACKET PO SCH ×2 (07:49→23:57)
[2021-01-04] MEDS: Rifaximin 20 mg/mL Suspension (Pharmacy to Compound) PO SCH ×2 (07:50→23:57)
[2021-01-04] MEDS: Morphine 2 MG/ML SYRINGE IV PRN (10:53)
[2021-01-05] MEDS: Lactulose 30 ml UDC PO SCH ×2 (00:22→08:16)
[2021-01-05 07:47] VITALS: BP 80/50
[2021-01-05] MEDS: Rifaximin 20 mg/mL Suspension (Pharmacy to Compound) PO SCH (08:16)
[2021-01-05] MEDS: CMCS: Lubiprostone 24 MCG CAP (NF) PO SCH (08:16)
[2021-01-05] MEDS: Polyethylene Glycol 3350 17 GM PACKET PO SCH (08:16)
== END 2021-01-05 11:30 | disposition home or self-care (01) | DRG 441 ==
LOC: ED 19:21 → SSU 19:21
PROVIDERS: ADMIT Internal Medicine; ATTEND Pediatrics